=== PATIENT | female | born 1935 | race Caucasian/White ===

== ENCOUNTER 2024-10-02 14:51 | Inpatient (IN) ==
--- OUTSIDE RECORDS SUMMARY | 2024-10-02 14:55 | External Medical Summary | Summary of Care ---
Author Name Unknown Organization [facility] Address [address] [place] [address] Phone [phone] Care Team Providers Care Vp Packaging Name Role Phone Damian Shay MD Primary Care Provide r Reason for Visit * Reason Comments eRx-Medication Refill Encounter Details Date Type Department Care Team (Late st Contact Info) Description 07/18/2024 Refill Family Medicine [address] [phone] Damian Shay MD [address] [place] [address] [place] [address] COPD, group C, by GOLD 2017 classification ([facility])*; COPD, group B, by GOLD 2017 classification ([facility]) Allergies Active Allergy Reactions Criticality Noted Date Comments Fentanyl Itching 01/22/2015 Itching all over w/patch Hydrocodone 01/19/2015 Throat tightening Ibuprofen 11/17/2017 Advised to avoid due to kidney function Latex 10/03/2009 Rash Lisinopril 12/12/2009 Cough Oxycodone 01/19/2015 Throat tightening Tramadol 01/19/2015 Itchy documented as of this encounter (statuses as of 07/20/2024) Medications Aspirin 81 MG Tablet Take 1 Tablet by mouth in the morning. Active Loratadine 10 MG Oral Tablet (Claritin)Indicati ons:Rhinorrhea Take 1 Tablet by mouth every night at bedtime. 30 Tablet 11 05/01/20 23 Active amLODIPine Besylate 5 MG Oral Tablet (Norvasc)Indicatio ns:Benign hypertension with chronic kidney disease, stage III (HCC) TAKE 1 TABLET BY MOUTH EVERY DAY IN THE MORNING 90 Tablet 3 07/07/19 24 Active Sertraline HCl 50 MG Oral Tablet (Zoloft)Indication s:Depression with anxiety TAKE 1 TABLET BY MOUTH EVERY DAY 90 Tablet 3 07/07/19 24 Active Fluticasone-Salmet danielle 500-50 MCG/ACT Inhalation Aerosol Powder Breath Activated (Advair Diskus)Indications :COPD, group C, by GOLD 2017 classification ([facility]) INHALE 1 PUFF BY MOUTH IN THE MORNING AND BEFORE BEDTIME 60 Each 5 05/06/20 24 Active Rosuvastatin Calcium 10 MG Oral Tablet (Crestor)Indicatio ns:Hyperlipidemia with target LDL less than 130 TAKE 1 TABLET BY MOUTH EVERY DAY IN THE MORNING 90 Tablet 2 07/10/19 25 Active Losartan Potassium 25 MG Oral Tablet (Cozaar) TAKE BY MOUTH 2 TABLETS (50 MG) DAILY IN THE MORNING 180 Tablet 2 07/10/19 25 Active Ventolin HFA 108 (90 Base) MCG/ACT Inhalation Aerosol SolutionIndication s:COPD, group C, by GOLD 2017 classification ([facility]) INHALE 2 PUFFS BY MOUTH EVERY 4 HOURS NEEDED FOR COUGH OR WHEEZING 54 g 1 07/20/19 25 Active Ventolin HFA 108 (90 Base) MCG/ACT Inhalation Aerosol SolutionIndication s:COPD, group B, by GOLD 2017 classification ([facility]) INHALE 2 PUFFS BY MOUTH EVERY 4 HOURS NEEDED FOR COUGH OR WHEEZING 54 g 1 07/07/19 24 025 Discontinued documented as of this encounter (statuses as of 07/20/2024) Active Problems Problem Noted Date Diagnosed Date COPD, group C, by GOLD 2017 classification 06/02 Overview: Per COPD GOLD Classification Benign hypertension with stage 3b chronic kidney disease 07/08/2021 Overview: Per CKD protocol Prediabetes 02/04/2021 Overview: Per Prediabetes protocol Mild mitral regurgitation 01/31/2021 H/O cervical spine surgery 01/31/2021 Depression with anxiety 07/23/2019 [place]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 10/13/2018 HTN, goal below 150/90 11/05/2017 Dyshidrotic eczema 10/02/2016 Mixed hyperlipidemia 04/05/2014 Vitamin D deficiency 10/03/2009 Overview (10/16/2009): Vitamin D 23.2 Female stress incontinence 04/03/2009 Generalized osteoarthritis of multiple sites 09/2008 Gastroesophageal reflux disease with esophagitis 09/26/2008 Tobacco use disorder Disc disorder of lumbar region documented as of this encounter (statuses as of 07/20/2024) Resolved Problems Problem Noted Date Diagnosed Date Resolved Date Chronic kidney disease, stage 3b 07/08/2021 03/18/2024 Overview: Per CKD protocol Stage 3a chronic kidney disease 11/06/2020 07/10/2021 Overview: Per CKD protocol Benign hypertension with sta ge 3a chronic kidney disease 10/02/2020 07/10/2021 Overview: Per CKD protocol Benign hypertension with chr onic kidney disease, stage III 01/03/2019 07/23/2019 Benign hypertension with chr onic kidney disease, stage III 09/29/2018 10/04/2020 Overview (09/29/2018): COMBO CODE Kidney disease, chronic, sta ge III (GFR 30-59 ml/min) 09/29/2016 10/06/2018 Overview: Per CKD protocol #1 Hip pain 01/10/2015 08/21/2016 Routine general medical exam ination at a health care facility 04/05/2014 08/21/2016 Overview (05/19/2015): Plan left hip total replacement NEEDS Shingles. 09/06/13 Colonoscopy-Sessile Serrated Adenoma. consider CT screening lungs Daughter in law my patient 09/05 Stress test. overall WNL. Small defect likely due to breast Or apical thickening. [facility]. 06/07 LDL 70. Gluc 109. TSH WNL 01/04 mammo WNL, Vit D 59 MRI shoulder left-mild OA. 08/03 Lumbar xray DDD L4-5, L5S1 Kidney disease, chronic, sta ge II (GFR 60-89 ml/min) 10/16/2009 07/10/2016 HTN, goal below 140/90 10/03/200911/05 Dyslipidemia, goal LDL below 100 05/08/2009 04/05/2014 Overview (05/08/2009): Per Lipid Taxonomy. Other atopic dermatitis 04/03/200907/25 Overview (03/17/2017): ICD-10 update of inactive term Major depressive disorder 09/26/2008 Overview (03/17/2017): ICD-10 update of inactive term Cataract 09/26/2008 04/05/2014 Kidney disease, chronic, sta ge III (GFR 30-59 ml/min) 09/26/2008 10/16/2009 Overview (09/27/2008): 23/1.0 GFR 58.1 Perichondritis of pinna 11/11/200403/25 Overview (10/03/2008): left ear Benign neoplasm of colon 01/28/200004/2014 Overview (10/03/2008): tubular adenoma descending colon Cataract extraction status 0 09/29/2018 Mixed dyslipidemia 9 Overview (05/08/2009): Per Lipid Taxonomy. COPD, group B, by GOLD 2017 classification 06/05/2022 Overview (11/18/2017): 10/09 & 10/06 PFTs-mod obstruction Chronic rhinitis 03/05/2017 documented as of this encounter (statuses as of 07/20/2024) Immunizations Name Administration Dates Next Due COVID-19 mRNA, LNP-s, No Pre serve, 2-Dose Series (Moderna) 02/15/2021,09/20/2020 COVID-19, MRNA-LNP, PF, 30 M CG/0.3 mL, 12 YRS AND ABOVE, IM (PFIZER-Comirnaty) 03/18/2024,05/01/2023 Pneumococcal Conjugate Vacc, 13 Valent (Prevnar) 11/10/2014 Pneumococcal Polysaccharide PPV23 (Pneumovax) 09/26/2008 Season Influenza, Quad, PF, Adjuvanted, 65+ Yrs, IM (FLUAD) 02/01/2020 Seasonal Influenza Vac., MDV , IM, 0.5 mL (Fluzone) 02/15/2014,02/20/2010,03/10/2009 Seasonal Influenza, High Dos e, Trivalent, PF, IM (Fluzone HD) 03/18/2024 Seasonal Influenza, PF, 6 M & above, IM , (FluLaval or Fluzone) 03/05/2017 Seasonal Influenza, Quadriva lent Hd (Fluzone Hd) 05/01/2023,02/05/2022 Seasonal Influenza, Quadriva lent, No Preserve, IM 02/22/2018,01/29/2016,03/14/2015 Seasonal Influenza, Trivalen t, Adjuvanted, 65+ YRS, PF, (Fluad) 02/16/2019 TD, Preservative Free 09/26/2008 TDAP (age 10 and older)(Boostrix) 03/14/2015 Varicella Zoster Vaccine (Adult) 01/10/2015 documented as of this encounter Social History Tobacco Use Types Packs/Day Years Used Date Smoking Tobacco: Former Cigarettes 0.8 64 0 02/21/1957 - 02/21/2021 Smokeless Tobacco: Never Alcohol Use Standard Drinks/Week Comments No 0 (1 standard drink = 0.6 oz pur e alcohol) PHQ-2 Answer Date Recorded PHQ Adult Total Score 0 03/18/2024 Hunger Vital Sign Answer Date Recorded Within the past 12 months, y ou worried that your food would run out before you got the money to buy more. Never true 10/05/19 21 Within the past 12 months, t he food you bought just didn't last and you didn't have money to get more. Never true 10/04/2020 Utilities Answer Date Recorded Do you have trouble paying y our heating, water, or electric bill? (Adult - for ages 18 years and over) Not on file 11/10/2023 Is your family able to pay t he heat, water, or electric bill? (Household - for ages 0-17 years) Not on file 11/10/2023 Does your family have access to good internet? (Household - for ages 0-17 years) Not on file 11/10/2023 Social Connections Answer Date Recorded How often do you feel lonely or isolated from those around you? (Adult - for ages 18 years and over) Not on file 11/10/2023 Comments No Sex and Gender Information Value Date Recorded Sex Assigned at Not on file Legal Sex Female 6:41 AM EST Gender Identity Not on file Sexual Orientation Not on file Occupation Industry Job Start Date Job End Date retired. Not on file Not on file Not on file documented as of this encounter Miscellaneous Notes * Telephone Encounter - Daron Miller [facility] - 07/20/2024 2:28 AM ESTSigned Prescriptions: Disp Refills Ventolin HFA 108 (90 Base) MCG/ACT Inhalat*54 g 1 Sig: INHALE 2 PUFFS BY MOUTH EVERY 4 HOURS NEEDED FOR COUGH OR WHEEZINGAuthorizing Provider: Gabriel SHAY User: DARON MILLER documented in this encounter Plan of Treatment Upcoming Encounters Date Type Department Care Team (Late st Contact Info) Description 09/16/2024 9:40 AM EDT [facility] [place] [address] Flaquita Lucas PA-C [address] [place] [address] [place] [phone] Health Maintenance Due Date Last Done Comments Alpha-1 Antitrypsin 1953 Zoster Vaccines (2 of 3) 03/07/2015 01/10/2015 Adult Wellness Visit 11/11/2015 11/10/2014 CKD PHOS USE SMARTSET 88762 03/31/2024 11/0 11/2022, 02/05/2022, 01/31/2021, Additional history exists COVID-19 Vaccine ( season) 2024 03/18/2024, 05/01/2023, 02/15/2021, Additional history exists DTap/Tdap Vaccines (2 - Td or Tdap) 03/14/2025 03/14/2015, 09/26/2008 Albumin/Creatinine Ratio 03/18/2025 024, 03/31/2023, 02/05/2022, Additional history exists CKD HGB USE SMARTSET 59064 03/18/202503/18, 03/31/2023, 10/15/2021, Additional history exists Depression Monitoring 03/18/2025 03/18/2024 HbA1c 03/18/2025 03/18/2024, 1111/2022, 02/05/2022, Additional history exists O2 ASSESSMENT COMPLETED IN PAST YEAR FOR COPD 03/18/2025 03/18/2024 Pneumococcal Vaccine: 50+ Years Completed 11/10/2014, 09/26/2008 Influenza Vaccine (FLU shot) Completed , 05/01/2023, 02/05/2022, Additional history exists HPV (Gardasil) Vaccine Aged Out No lo nger eligible based on patient's age to complete this topic Hepatitis B Vaccine Aged Out No longe r eligible based on patient's age to complete this topic MENINGOCOCCAL (MENACTRA/MENVEO) Aged Out No longer eligible based on patient's age to complete this topic Meningitis B Vaccine (Bexsero/Trumemba) Aged Out No longer eligible based on patient's age to complete this topic documented as of this encounter Medical Devices Not on filedocumented as of this encounter Visit Diagnoses Diagnosis COPD, group C, by GOLD 2017 classification (HCC)- Primary COPD, group B, by GOLD 2017 classification (HCC) documented in this encounter Care Teams Vp Packaging Relationship Specialty Start Date End Date Damian Shay MD NPI: [id number] [place] [address] [place] [id number] PCP - General Family Medicine 10/31/20 documented as of this encounter
--- OUTSIDE RECORDS SUMMARY | 2024-10-02 14:55 | External Medical Summary | Summary of Care ---
Author Name Unknown Organization [facility] Address [address] [place] [address] Phone [phone] Care Team Providers Care Media Supervisor Name Role Phone Damian Shay MD Primary Care Provide r Reason for Visit * Reason Comments eRx-Medication Refill Encounter Details Date Type Department Care Team (Late st Contact Info) Description 07/18/2024 Refill Family Medicine [address] [phone] Damian Shay MD [address] [place] [address] [place] [address] COPD, group C, by GOLD 2017 classification ([facility])*; COPD, group B, by GOLD 2017 classification ([facility]) Allergies Active Allergy Reactions Criticality Noted Date Comments Fentanyl Itching 01/22/2015 Itching all over w/patch Hydrocodone 01/19/2015 Throat tightening Ibuprofen 11/17/2017 Advised to avoid due to kidney function Latex 10/03/2009 Rash Lisinopril 12/12/2009 Cough Oxycodone 01/19/2015 Throat tightening Tramadol 01/19/2015 Itchy documented as of this encounter (statuses as of 07/22/2024) Medications Aspirin 81 MG Tablet Take 1 [...] :COPD, group C, by GOLD 2017 classification ([facility]) INHALE 1 PUFF BY MOUTH IN THE [...] s:COPD, group C, by GOLD 2017 classification ([facility]) INHALE 2 PUFFS BY MOUTH EVERY 4 HOURS NEEDED FOR COUGH OR WHEEZING 54 g 1 07/20/19 25 Active Ventolin HFA 108 (90 Base) MCG/ACT Inhalation Aerosol SolutionIndication s:COPD, group B, by GOLD 2017 classification ([facility]) INHALE 2 PUFFS BY MOUTH EVERY 4 HOURS NEEDED FOR COUGH OR WHEEZING 54 g 1 07/07/19 24 025 Discontinued documented as of this encounter (statuses as of 07/22/2024) Active Problems Problem Noted Date Diagnosed Date [...] as of this encounter (statuses as of 07/22/2024) Resolved Problems Problem Noted Date Diagnosed Date [...] to breast Or apical thickening. [facility]. 06/07 LDL 70. Gluc 109. TSH WNL [...] as of this encounter (statuses as of 07/22/2024) Immunizations Name Administration Dates Next Due COVID-19 [...] encounter Miscellaneous Notes * Telephone Encounter - Lesli Rowell CPhT - 07/22/2024 2:44 PM EST Pt calling to request Ventolin HFA 108 (90 Base) MCG/ACT Inhalation Aerosol Solution . Informed pt that RX is available at their pharmacy. Pt verbalized understanding and stated they will check with their pharmacy regarding this medication. Thank you, Lesli Rowell Code Number [facility] ([facility] (formerly Telepharmacy) 07/22/2024 2:44 PM * Telephone Encounter - Daron Miller [facility] - 07/20/2024 2:28 AM ESTSigned Prescriptions: Disp [...] 9:40 AM EDT Office Visit Family Medicine [address] [place] [address] Flaquita Lucas PA-C [address] [place] [address] [place] Sterling [phone] Health Maintenance Due Date Last Done Comments Alpha-1 Antitrypsin 1953 Zoster Vaccines (2 of 3) 03/07/2015 01/10/2015 Adult Wellness Visit 11/11/2015 11/10/2014 CKD PHOS USE SMARTSET 52126 03/31/202411/2022, 02/05/2022, 01/31/2021, Additional history exists COVID-19 Vaccine ( season) 2024 03/18/2024, 05/01/2023, 02/15/2021, Additional history exists DTap/Tdap Vaccines (2 - Td or Tdap) 03/14/2025 03/14/2015, 09/26/2008 Albumin/Creatinine Ratio 03/18/20252 024, 03/31/2023, 02/05/2022, Additional history exists CKD HGB USE SMARTSET 50748 03/18/202503/18, 03/31/2023, 10/15/2021, Additional history exists Depression [...] (HCC) documented in this encounter Care Teams Media Supervisor Relationship Specialty Start Date End Date Damian Shay MD [address] [place] [address] [place] [address] PCP - General Family Medicine 10/31/20 documented as of this encounter
--- OUTSIDE RECORDS SUMMARY | 2024-10-02 14:55 | External Medical Summary ---
Author Name Unknown Address Unknown Organization K01:[facility] [place] [address] [place] [address] Laboratory Report Ordering Provider Test Date Status MALLORY HANNA 09/21/2024 08:45:44 Final Observation Date Value Abnormality Reference (Units ) Status BUN 09/21/2024 08:45:44 22 Above high normal 6-20 (mg/dL) Final Creatinine 09/21/2024 08:45:44 1.3 Above high normal 0.5-1.0 (mg/dL) Final Glomerular filtration rate/1.73 sq M.predicted [Volume Rate/Area] in Serum, Plasma or Blood by Creatinine-based formula (CKD-EPI) 09/21/2024 08:45:44 41 Below low normal >=60 (mL/min) Final eGFR is calculated based on the CKD-EPI 2020 equation. Sodium 09/21/2024 08:45:44 144 135-146 (m mol/L) Final Potassium 09/21/2024 08:45:44 4.7 3.5-5.1 (m mol/L) Final Cl 09/21/2024 08:45:44 105 98-107 (mm ol/L) Final CO2 09/21/2024 08:45:44 26 22-32 (mmo l/L) Final Anion gap 09/21/2024 08:45:44 13 7-15 (mmol /L) Final Glucose 09/21/2024 08:45:44 119 70-120 (mg /dL) Final Calcium 09/21/2024 08:45:44 9.7 8.4-10.2 ( mg/dL) Final Performing Location [facility] [place] [address] [place] [address]
--- OUTSIDE RECORDS SUMMARY | 2024-10-02 14:55 | External Medical Summary | Summary of Care ---
Author Name Unknown Organization [facility] Address [address] [place] [address] Phone [phone] Care Team Providers Care Woven Label Designer Name Role Phone Damian Shay MD Primary Care Provide r Reason for Visit * Reason Comments Re-Check Encounter Details Date Type Department Care Team (Latest Contact Info) Description 09/21/2024 8:40 AM EDT Office Visit Family Medicine [address] [phone] Flaquita Lucas PA-C [address] [place] [address] [place] [phone] HTN, goal below 150/90*; COPD, group C, by GOLD 2017 classification ([facility]); Benign hypertension with stage 3b chronic kidney disease ([facility]); Depression with anxiety; Gastroesophageal reflux disease with esophagitis without hemorrhage; Generalized osteoarthritis of multiple sites; Mixed hyperlipidemia; Prediabetes; Benign hypertension with chronic kidney disease, stage III ([facility]) Allergies Active Allergy Reactions Criticality Noted Date Comments Fentanyl Itching 01/22/2015 Itching all over w/patch Hydrocodone 01/19/2015 Throat tightening Ibuprofen 11/17/2017 Advised to avoid due to kidney function Latex 10/03/2009 Rash Lisinopril 12/12/2009 Cough Oxycodone 01/19/2015 Throat tightening Tramadol 01/19/2015 Itchy documented as of this encounter (statuses as of 09/21/2024) Medications Aspirin 81 MG Tablet Take 1 Tablet by mouth in the morning. Active Loratadine 10 MG Oral Tablet (Claritin)Indicatio ns:Rhinorrhea Take 1 Tablet by mouth every night at bedtime. 30 Tablet 11 3 Active Fluticasone-Salmete rol 500-50 MCG/ACT Inhalation Aerosol Powder Breath Activated (Advair Diskus)Indications: COPD, group C, by GOLD 2017 classification ([facility]) INHALE 1 PUFF BY MOUTH IN THE MORNING AND BEFORE BEDTIME 60 Each 5 4 Active Rosuvastatin Calcium 10 MG Oral Tablet (Crestor)Indication s:Hyperlipidemia with target LDL less than 130 TAKE 1 TABLET BY MOUTH EVERY DAY IN THE MORNING 90 Tablet 2 5 Active Losartan Potassium 25 MG Oral Tablet (Cozaar) TAKE BY MOUTH 2 TABLETS (50 MG) DAILY IN THE MORNING 180 Tablet 2 5 Active Ventolin HFA 108 (90 Base) MCG/ACT Inhalation Aerosol SolutionIndications :COPD, group C, by GOLD 2017 classification ([facility]) INHALE 2 PUFFS BY MOUTH EVERY 4 HOURS NEEDED FOR COUGH OR WHEEZING 54 g 1 5 Active amLODIPine Besylate 5 MG Oral Tablet (Norvasc)Indication s:Benign hypertension with chronic kidney disease, stage III ([facility]) TAKE 1 TABLET BY MOUTH EVERY DAY IN THE MORNING 90 Tablet 2 5 Active Sertraline HCl 50 MG Oral Tablet (Zoloft)Indications :Depression with anxiety Take 1 Tablet by mouth in the morning. 90 Tablet 1 5 Active documented as of this encounter (statuses as of 09/21/2024) Active Problems Problem Noted Date Diagnosed Date Benign hypertension with chronic kidney disease, stage III 09/21/2024 COPD, group C, by GOLD 2017 classification [...] as of this encounter (statuses as of 09/21/2024) Resolved Problems Problem Noted Date Diagnosed Date [...] to breast Or apical thickening. [facility]. 06/07 LDL 70. Gluc 109. TSH WNL [...] as of this encounter (statuses as of 09/21/2024) Immunizations Name Administration Dates Next Due COVID-19 [...] 10 and older)(Boostrix) 03/14/2015 Varicella Zoster Vaccine Adult (Zostavax) 2014 documented as of this encounter Social History [...] money to get more. Never true 10/04/2020 Comments No Sex and Gender Information Value Date Recorded Sex Assigned at Not on file Legal Sex Female 6:41 AM EST Gender Identity Not on file Sexual Orientation Not on file Occupation Industry Job Start Date Job End Date retired. Not on file Not on file Not on file documented as of this encounter Last Filed Vital Signs Vital Sign Reading Time Taken Comments Blood Pressure 129/47 09/21/2024 8:32 AM EDT Pulse 61 09/21/2024 8:32 AM EDT Temperature 36.4 °C (97.5 °F) 09/21/2024 8:32 AM ED T Respiratory Rate - - Oxygen Saturation - - Inhaled Oxygen Concentration - - Weight 59 kg (130 lb) 09/21/2024 8:32 AM EDT Height 157.5 cm (5' 2") 09/21/2024 8:32 AM EDT Body Mass Index 23.78 09/21/2024 8:32 AM EDT documented in this encounter Progress Notes * Flaquita Lucas PA-C - 09/21/2024 8:37 AM EDT Nursing Notes: Nadege Brink, ANA PAULA 09/21/24 0834 Sign at exiting of workspace Return No concerns today Pt here today for recheck. Pt with PMH of HTN, CKD, GERD, allergies, severe COPD, depression/anxiety, lower back pain, OA, prediabetes. Pt has no issues at this time. She does need some labs. Review of patient's allergies indicates: Allergen Reactions Fentanyl Itching Itching all over w/patch Hydrocodone Throat tightening Ibuprofen Advised to avoid due to kidney function Latex Rash Lisinopril Cough Oxycodone Throat tightening Tramadol Itchy Current Outpatient Medications Medication Sig Dispense Refill Aspirin 81 MG Tablet Take 1 Tablet by mouth in the morning. Loratadine 10 MG Oral Tablet (Claritin) Take 1 Tablet by mouth every night at bedtime. 30 Tablet 11 Fluticasone-Salmeterol 500-50 MCG/ACT Inhalation Aerosol Powder Breath Activated (Advair Diskus) INHALE 1 PUFF BY MOUTH IN THE MORNING AND BEFORE BEDTIME 60 Each 5 Rosuvastatin Calcium 10 MG Oral Tablet (Crestor) TAKE 1 TABLET BY MOUTH EVERY DAY IN THE MORNING 90Tablet 2 Losartan Potassium 25 MG Oral Tablet (Cozaar) TAKE BY MOUTH 2 TABLETS (50 MG) DAILY IN THE MORNING 180 Tablet 2 Ventolin HFA 108 (90 Base) MCG/ACT Inhalation Aerosol Solution INHALE 2 PUFFS BY MOUTH EVERY 4 HOURS NEEDED FOR COUGH OR WHEEZING 54 g 1 amLODIPine Besylate 5 MG Oral Tablet (Norvasc) TAKE 1 TABLET BY MOUTH EVERY DAY IN THE MORNING 90 Tablet 2 Sertraline HCl 50 MG Oral Tablet (Zoloft) Take 1 Tablet by mouth in the morning. 90 Tablet 1 No current facility-administered medications for this visit. 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 10/02/2016 Dyslipidemia, goal LDL below 100 Esophageal reflux Female stress incontinence 04/03/09 Generalized osteoarthritis of multiple sites Hip pain 01/10/2015 HTN, goal below 130/80 Kidney disease, chronic, stage III (GFR 30-59 ml/min) ([facility]) 23/1.0 GFR 58.1 Mixed dyslipidemia 11/24/02 CHOL 311, HDL 60, LDL 195, TRIG 282 Other acne 11/11/04 open comedones and blackheads on face, tretinoin prescribed Other and unspecified hyperlipidemia 04/05/2014 Other seborrheic keratosis 11/11/04 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 Tobacco Use Smoking status: Former Current packs/day: 0.00 Average packs/day: 0.8 packs/day for 64.0 years (48.0 ttl pk-yrs) Types: Cigarettes Start date: 02/21/1957 Quit date: 02/21/2021 Years since quittin.5 Smokeless tobacco: Never Substance and Sexual Activity Alcohol use: No Drug use: No Sexual activity: Never Comment: was 39YO Other Topics Concern Not on file Social History Narrative Not on file Social Needs Financial Resource Strain: Not on file Food Insecurity: No Food Insecurity (10/04/2020) Hunger Vital Sign Worried About Running Out of Food in the Last Year: Never true Ran Out of Food in the Last Year: Never true Transportation Needs: Not on file Social Connections: Unknown (11/10/2023) Social Connections How often do you feel lonely or isolated from those around you? (Adult - for ages 18 years and over): Not on file Housing Stability: Not on file O:Blood pressure 129/47, pulse 61, temperature 97.5 °F (36.4 °C), temperature source Tympanic, height 5' 2" (1.575 m), weight 130 lb (59 kg), not currently . GENERAL: alert, healthy, and no distress NECK: supple, no adenopathy, no bruits, thyroid normal size, non-tender, without nodularity EYES: PERRLA, conjunctiva are pink and non-injected, sclera clear EARS: External ears normal, Canals clear, TM's Normal NOSE: no mucosal erythema, no mucosal edema, no purulent discharge OROPHARYNX: no exudate, no erythema, lips, buccal mucosa, and tongue normal, and mucous membranes are moist HEART: regular rate & rhythm, no murmur, and no gallops LUNGS: chest symmetric with normal AP diameter, no chest deformities noted, no chest wall tenderness, lungs clear to auscultation A:HTN, goal below 150/90 (Primary) - BASIC METABOLIC PANEL; Future; Expected date: 09/21/2024 COPD, group C, by GOLD 2017 classification (HCC) Benign hypertension with stage 3b chronic kidney disease (HCC) Depression with anxiety Gastroesophageal reflux disease with esophagitis without hemorrhage Generalized osteoarthritis of multiple sites Mixed hyperlipidemia Prediabetes - HEMOGLOBIN A1C; Future; Expected date: 09/21/2024 Continue current meds. Will check some labs. Any questions/problems, please call. If anything changes, worsens, develops new sx, please call [facility]. Follow Up: Return if symptoms worsen or fail to improve. Flaquita Lucas PA-C documented in this encounter Nursing Notes * Nadege Brink LPN - 09/21/2024 8:34 AM EDT Return No concerns today documented in this encounter Plan of Treatment Health Maintenance Due Date Last Done Comments Alpha-1 Antitrypsin 1953 Zoster Vaccines (2 of 3) 03/07/2015 01/10/2015 Adult Wellness Visit 11/11/2015 11/10/2014 CKD PHOS USE SMARTSET 92101 03/31/2024 11/0 11/2022, 02/05/2022, 01/31/2021, Additional history exists COVID-19 Vaccine ( season) 2024 03/18/2024, 05/01/2023, 02/15/2021, Additional history exists DTap/Tdap Vaccines (2 - Td or Tdap) 03/14/2025 03/14/2015, 09/26/2008 Albumin/Creatinine Ratio 03/18/2025 024, 03/31/2023, 02/05/2022, Additional history exists CKD HGB USE SMARTSET 93138 03/18/202503/18, 03/31/2023, 10/15/2021, Additional history exists Depression Monitoring 03/18/2025 03/18/2024 O2 ASSESSMENT COMPLETED IN PAST YEAR FOR COPD 03/18/2025 03/18/2024 HbA1c 09/21/2025 09/21/2024, 02/23, 03/31/2023, Additional history exists Pneumococcal Vaccine: 50+ Years Completed 11/10/2014, 09/26/2008 [...] Not on filedocumented as of this encounter Results * (ABNORMAL) HEMOGLOBIN A1C (09/21/2024 8:45 AM EDT) Hemoglobin A1C 6.1(H) 4.0 - 5.6 % 09/21/2024 5:13 PM EDT [facility] [place]:The use of HbA1c to monitor glycemic status is based on normal hemoglobin and HbA composition. This test should not be used in patients with abnormal hemoglobin that affects the half life of the red blood cell or the in vivo glycation rates. Estimated Average Glucose 128(H) <126 mg/dL 09/21/2024 5:13 PM EDT [facility] [place] Blood Venous blood specimen / Unknown Venipuncture / Unknown 09/21/2024 8:45 AM EDT 09/21/2024 8:45 AM EDT Flaquita Lucas PA-C LAB BLOOD ORDERABLES Final Result [facility] [place] [address] [place] [address] * (ABNORMAL) BASIC METABOLIC PANEL (09/21/2024 8:45 AM EDT) BUN 22(H) 6 - 20 mg/dL 09/21/2024 5:07 PM EDT [facility] [place] CREATININE 1.3(H) 0.5 - 1.0 mg/dL 09/21/2024 5:07 PM EDT [facility] [place] EGFR 41(L) >=60 mL/min 09/21/2024 5:07 PM EDT [facility] [place] Comment:eGFR is calculated b ased on the CKD-EPI 2020 equation. SODIUM 144 135 - 146 mmol/L 09/21/2024 5:07 PM EDT [facility] POTASSIUM 4.7 3.5 - 5.1 mmol/L 09/21/2024 5:07 PM EDT LABORATORY C CHLORIDE 105 98 - 107 mmol/L 09/21/2024 5:07 PM EDT LABORATORY C CO2 26 22 - 32 mmol/L 09/21/2024 5:07 PM EDT [facility] ANION GAP 13 7 - 15 mmol/L 09/21/2024 5:07 PM EDT [facility] GLUCOSE 119 70 - 120 mg/dL 09/21/2024 5:07 PM EDT [facility] CALCIUM 9.7 8.4 - 10.2 mg/dL 09/21/2024 5:07 PM EDT [facility] Blood Venous blood specimen / Unknown Venipuncture / Unknown 09/21/2024 8:45 AM EDT 09/21/2024 8:45 AM EDT us Flaquita Lucas PA-C LAB BLOOD ORDERABLES Final Result [facility] [address] [facility] [place] [id number] documented in this encounter Visit Diagnoses Diagnosis HTN, goal below 150/90- Primary COPD, group C, by GOLD 2017 classification (HCC) Benign hypertension with stage 3b chronic kidney disease (HCC) Depression with anxiety Dysthymic disorder Gastroesophageal reflux disease with esophagitis without hemorrhage Generalized osteoarthritis of multiple sites Generalized osteoarthrosis, involving multiple sites Mixed hyperlipidemia Prediabetes Other abnormal glucose Benign hypertension with chronic kidney disease, stage III (HCC) Benign hypertensive kidney disease with chronic kidney disease stage I through stage IV, or unspecified documented in this encounter Care Teams Woven Label Designer Relationship Specialty Start Date End Date Damian Shay MD [address] [place] [address] [place] [id number] PCP - General Family Medicine 10/31/20 documented as of this encounter
--- OUTSIDE RECORDS SUMMARY | 2024-10-02 14:55 | External Medical Summary | Summary of Care ---
Author Name Unknown Organization [facility] Address [address] [place] [address] Phone [phone] Care Team Providers Care Coin Machine Assembler Name Role Phone Damian Shay MD Primary Care Provide r Encounter Details Date Type Department Care Team (Late st Contact Info) Description 06/16/2024 Population Health External Data Unspecified Department Allergies Active Allergy Reactions Criticality Noted Date Comments Fentanyl Itching 01/22/2015 Itching all over w/patch Hydrocodone 01/19/2015 Throat tightening Ibuprofen 11/17/2017 Advised to avoid due to kidney function Latex 10/03/2009 Rash Lisinopril 12/12/2009 Cough Oxycodone 01/19/2015 Throat tightening Tramadol 01/19/2015 Itchy documented as of this encounter (statuses as of 06/16/2024) Medications Aspirin 81 MG Tablet Take 1 Tablet by mouth in the morning. Active Loratadine 10 MG Oral Tablet (Claritin)Indicatio ns:Rhinorrhea Take 1 Tablet by mouth every night at bedtime. 30 Tablet 11 3 Active amLODIPine Besylate 5 MG Oral Tablet (Norvasc)Indication s:Benign hypertension with chronic kidney disease, stage III (HCC) TAKE 1 TABLET BY MOUTH EVERY DAY IN THE MORNING 90 Tablet 3 4 Active Losartan Potassium 25 MG Oral Tablet (Cozaar) TAKE BY MOUTH 2 TABLETS (50 MG) DAILY IN THE MORNING 180 Tablet 3 4 Active Sertraline HCl 50 MG Oral Tablet (Zoloft)Indications :Depression with anxiety TAKE 1 TABLET BY MOUTH EVERY DAY 90 Tablet 3 4 Active Ventolin HFA 108 (90 Base) MCG/ACT Inhalation Aerosol SolutionIndications :COPD, group B, by GOLD 2017 classification ([facility]) INHALE 2 PUFFS BY MOUTH EVERY 4 HOURS NEEDED FOR COUGH OR WHEEZING 54 g 1 4 Active Rosuvastatin Calcium 10 MG Oral Tablet (Crestor)Indication s:Hyperlipidemia with target LDL less than 130 TAKE 1 TABLET BY MOUTH EVERY DAY IN THE MORNING 90 Tablet 3 4 Active Fluticasone-Salmete rol 500-50 MCG/ACT Inhalation Aerosol Powder Breath Activated (Advair Diskus)Indications: COPD, group C, by GOLD 2017 classification ([facility]) INHALE 1 PUFF BY MOUTH IN THE MORNING AND BEFORE BEDTIME 60 Each 5 4 Active documented as of this encounter (statuses as of 06/16/2024) Active Problems Problem Noted Date Diagnosed Date [...] as of this encounter (statuses as of 06/16/2024) Resolved Problems Problem Noted Date Diagnosed Date [...] likely due to breast Or apical thickening. [facility] [place]. 06/07 LDL 70. Gluc 109. TSH WNL [...] Cataract extraction status 0 09/29/2018 Mixed dyslipidemia Overview (05/08/2009): Per Lipid Taxonomy. COPD, group B, by GOLD 2017 classification 06/05/2022 Overview (11/18/2017): 10/09 & 10/06 PFTs-mod obstruction Chronic rhinitis 03/05/2017 documented as of this encounter (statuses as of 06/16/2024) Immunizations Name Administration Dates Next Due COVID-19 [...] on file documented as of this encounter Plan of Treatment Upcoming Encounters Date Type Department Care Team (Late st Contact Info) Description 09/16/2024 9:40 AM EDT Office Visit Family Medicine [address] [place] [phone] Flaquita Lucas PA-C [address] [place] [address] [place] [phone] Health Maintenance Due Date Last Done Comments Alpha-1 Antitrypsin 1953 Zoster Vaccines (2 of 3) 03/07/2015 01/10/2015 Adult Wellness Visit 11/11/2015 11/10/2014 CKD PHOS USE SMARTSET 42692 03/31/2024 11/0 11/2022, 02/05/2022, 01/31/2021, Additional history exists DTap/Tdap Vaccines (2 - Td or Tdap) 03/14/2025 03/14/2015, 09/26/2008 Albumin/Creatinine Ratio 03/18/202503/18/ 024, 03/31/2023, 02/05/2022, Additional history exists CKD HGB USE SMARTSET 16227 03/18/202503/18, 03/31/2023, 10/15/2021, Additional history exists Depression Monitoring 03/18/2025 03/18/2024 HbA1c 03/18/2025 03/18/2024, 110 11/2022, 02/05/2022, Additional history exists O2 ASSESSMENT COMPLETED IN PAST YEAR FOR COPD 03/18/2025 03/18/2024 Pneumococcal Vaccine: 50+ Years Completed 11/10/2014, 09/26/2008 COVID-19 Vaccine Completed 03/18/2024, 12/2022, 02/15/2021, Additional history exists Influenza Vaccine (FLU shot) Completed , 05/01/2023, [...] Not on filedocumented as of this encounter Care Teams Coin Machine Assembler Relationship Specialty Start Date End Date Damian Shay MD [address] [place] [address] [place] [address] PCP - General Family Medicine 10/31/20 documented as of this encounter
--- OUTSIDE RECORDS SUMMARY | 2024-10-02 14:55 | External Medical Summary | Summary of Care ---
Author Name Unknown Organization [facility] Address [address] [place] [address] Phone [phone] Care Team Providers Care Electric Motor Repairing Supervisor Name Role Phone Damian Shay MD Primary Care Provide r Reason for Visit * Reason Comments Re-Check Encounter Details Date Type Department Care Team (Latest Contact Info) Description 09/21/2024 8:40 AM EDT Office Visit Family Medicine [address] [phone] Flaquita Lucas PA-C [address] [place] [address] [place] [phone] HTN, goal below 150/90*; COPD, group C, by GOLD 2017 classification ([facility]); Benign hypertension with stage 3b chronic kidney disease (HCC); Depression with anxiety; Gastroesophageal reflux disease with esophagitis without hemorrhage; Generalized osteoarthritis of multiple sites; Mixed hyperlipidemia; Prediabetes Allergies Active Allergy Reactions Criticality Noted Date [...] C, by GOLD 2017 classification ([facility]) INHALE 1 PUFF BY MOUTH IN THE [...] C, by GOLD 2017 classification ([facility]) INHALE 2 PUFFS BY MOUTH EVERY 4 HOURS NEEDED FOR COUGH OR WHEEZING 54 g 1 5 Active amLODIPine Besylate 5 MG Oral Tablet (Norvasc)Indication s:Benign hypertension with chronic kidney disease, stage III ([facility]) TAKE 1 TABLET BY MOUTH EVERY DAY [...] to breast Or apical thickening. [facility]. 06/07 LDL 70. Gluc 109. TSH WNL [...] 09/21/2024 8:37 AM EDT Nursing Notes: Nadege Brink LPN 09/21/24 0834 Sign at exiting of workspace [...] Chronic rhinitis COPD, severity to be determined ([facility]) Depression with anxiety 07/23/2019 Depressive disorder, not elsewhere classified Disc disorder of lumbar region Dyshidrotic eczema 10/02/2016 Dyslipidemia, goal LDL below 100 Esophageal reflux Female stress incontinence 04/03/09 Generalized osteoarthritis of multiple sites Hip pain 01/10/2015 HTN, goal below 130/80 Kidney disease, chronic, stage III (GFR 30-59 ml/min) ([facility]) 23/1.0 GFR 58.1 Mixed dyslipidemia 11/24/02 CHOL [...] on file Occupational History 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 Tobacco Use Smoking status: Former Current [...] documented in this encounter Plan of Treatment Pending Results Name Type Priority Associated Diagnoses Date /Time BASIC METABOLIC PANEL Lab Routine HTN, goal below 150/90 09/21/2024 8:45 AM EDT HEMOGLOBIN A1C Lab Routine Prediabetes 09/21/2024 8:45 AM EDT Scheduled Orders Name Type Priority Associated Diagnoses Orde r Schedule BASIC METABOLIC PANEL Lab Routine HTN, goal below 150/90 Expected: 09/21/2024 (Approximate), Expires: 09/21/2025 HEMOGLOBIN A1C Lab Routine Prediabetes Expected: 09/21/2024 (Approximate), Expires: 09/21/2025 Health Maintenance Due Date Last Done Comments Alpha-1 Antitrypsin 1955 Zoster Vaccines (2 of 3) 03/07/2015 01/10/2015 Adult Wellness Visit 11/11/2015 11/10/2014 CKD PHOS USE SMARTSET 98240 03/31/202411/2022, 02/05/2022, 01/31/2021, Additional history exists COVID-19 Vaccine ( season) 2024 03/18/2024, 05/01/2023, 02/15/2021, Additional history exists DTap/Tdap Vaccines (2 - Td or Tdap) 03/14/2025 03/14/2015, 09/26/2008 Albumin/Creatinine Ratio 03/18/202503/18/2 024, 03/31/2023, 02/05/2022, Additional history exists CKD HGB USE SMARTSET 87666 03/18/202503/18, 03/31/2023, 10/15/2021, Additional history exists Depression Monitoring 03/18/2025 03/18/2024 HbA1c 03/18/2025 03/18/2024, 11/2022, 02/05/2022, Additional history exists O2 ASSESSMENT [...] as of this encounter Visit Diagnoses Diagnosis HTN, goal below 150/90- Primary COPD, group C, by GOLD 2017 classification (HCC) Benign hypertension with stage 3b chronic kidney disease (HCC) Depression with anxiety Dysthymic disorder Gastroesophageal reflux disease with esophagitis without hemorrhage Generalized osteoarthritis of multiple sites Generalized osteoarthrosis, involving multiple sites Mixed hyperlipidemia Prediabetes Other abnormal glucose documented in this encounter Care Teams Electric Motor Repairing Supervisor Relationship Specialty Start Date End Date Damian Shay MD [address] [place] [address] [place] [address] PCP - General Family Medicine 10/31/20 documented as of this encounter
--- OUTSIDE RECORDS SUMMARY | 2024-10-02 14:55 | External Medical Summary | Summary of Care ---
Author Name Unknown Organization [facility] Address [address] [place] [address] Phone [phone] Care Team Providers Care Polysomnography Tech Name Role Phone Damian Shay MD Primary Care Provide r Reason for Visit * Reason Onset Date Comments Medication Problem 09/26/2024 Advair isn't covered Encounter Details Date Type Department Care Team (Late st Contact Info) Description 09/26/2024 Telephone Family [address] [phone] Flaquita Lucas PA-C [address] [place] [address] [place] [address] Medication Problem (Advair isn't covered) Allergies Active Allergy Reactions Criticality Noted Date Comments Fentanyl Itching 01/22/2015 Itching all over w/patch Hydrocodone 01/19/2015 Throat tightening Ibuprofen 11/17/2017 Advised to avoid due to kidney function Latex 10/03/2009 Rash Lisinopril 12/12/2009 Cough Oxycodone 01/19/2015 Throat tightening Tramadol 01/19/2015 Itchy documented as of this encounter (statuses as of 09/27/2024) Medications Aspirin 81 MG Tablet Take 1 Tablet by mouth in the morning. Active Loratadine 10 MG Oral Tablet (Claritin)Indicatio ns:Rhinorrhea Take 1 Tablet by mouth every night at bedtime. 30 Tablet 11 3 Active Fluticasone-Salmete rol 500-50 MCG/ACT Inhalation Aerosol Powder Breath Activated (Advair Diskus)Indications: COPD, group C, by GOLD 2017 classification ([facility]) INHALE 1 PUFF BY MOUTH IN THE [...] :COPD, group C, by GOLD 2017 classification ([facility]) INHALE 2 PUFFS BY MOUTH EVERY 4 HOURS NEEDED FOR COUGH OR WHEEZING 54 g 1 5 Active amLODIPine Besylate 5 MG Oral Tablet (Norvasc)Indication s:Benign hypertension with chronic kidney disease, stage III ([facility]) TAKE 1 TABLET BY MOUTH EVERY DAY IN THE MORNING 90 Tablet 2 5 Active Sertraline HCl 50 MG Oral Tablet (Zoloft)Indications :Depression with anxiety Take 1 Tablet by mouth in the morning. 90 Tablet 1 5 Active Fluticasone Furoate-Vilanterol 100-25 MCG/ACT Inhalation Aerosol Powder Breath Activated (BREO ellipta)Indications :COPD, group C, by GOLD 2017 classification ([facility]) Inhale 1 Puff by mouth in the morning. 28 Each 5 5 Active documented as of this encounter (statuses as of 09/27/2024) Active Problems Problem Noted Date Diagnosed Date [...] as of this encounter (statuses as of 09/27/2024) Resolved Problems Problem Noted Date Diagnosed Date [...] due to breast Or apical thickening. [facility]. 06/07 LDL 70. Gluc 109. TSH WNL [...] as of this encounter (statuses as of 09/27/2024) Immunizations Name Administration Dates Next Due COVID-19 [...] encounter Miscellaneous Notes * Telephone Encounter - Flaquita Lucas PA-C - 09/26/2024 10:45 AM EDT New inhaler sent to pharm. * Telephone Encounter - Lizet Roberts CMA - 09/26/2024 7:27 AM EDT The Advair Diskus inhaler is no longer covered by her insurance. [facility] is recommending alternatives: Advair HFA 45-21mcg or Breo Ellipta 100-25 mcg inhaler documented in this encounter Plan of Treatment Health Maintenance Due Date Last Done Comments Alpha-1 Antitrypsin 1953 Zoster Vaccines (2 of 3) 03/07/2015 01/10/2015 Adult Wellness Visit 11/11/2015 11/10/2014 CKD PHOS USE SMARTSET 34905 03/31/2024 11/0 11/2022, 02/05/2022, 01/31/2021, Additional history exists COVID-19 Vaccine ( season) 2024 03/18/2024, 05/01/2023, 02/15/2021, Additional history exists DTap/Tdap Vaccines (2 - Td or Tdap) 03/14/2025 03/14/2015, 09/26/2008 Albumin/Creatinine Ratio 03/18/202503/18/ 024, 03/31/2023, 02/05/2022, Additional history exists CKD HGB USE SMARTSET 89164 03/18/202503/18, 03/31/2023, 10/15/2021, Additional history exists Depression [...] C, by GOLD 2017 classification (HCC)- Primary documented in this encounter Care Teams Polysomnography Tech Relationship Specialty Start Date End Date Damian Shay MD [address] [place] [address] [place] [phone] PCP - General Family Medicine 10/31/20 documented as of this encounter
--- OUTSIDE RECORDS SUMMARY | 2024-10-02 14:55 | External Medical Summary | Summary of Care ---
Author Name Unknown Organization [facility] Address [address] [place] [address] Phone [phone] Care Team Providers Care Machine Icer Name Role Phone Damian Shay MD Primary Care Provide r Reason for Visit * Reason Comments Re-Check Encounter Details Date Type Department Care Team (Latest Contact Info) Description 09/21/2024 8:40 AM EDT Office Visit Family Medicine [address] [phone] Flaquita Lucas PA-C [address] [place] [address] [place] [phone] HTN, goal below 150/90*; COPD, group C, by GOLD 2017 classification ([facility]); Benign hypertension with stage 3b chronic kidney disease ([facility]); Depression with anxiety; Gastroesophageal reflux disease with esophagitis without hemorrhage; Generalized osteoarthritis of multiple sites; Mixed hyperlipidemia; Prediabetes; Benign hypertension with chronic kidney disease, stage III ([facility]) Allergies Active Allergy Reactions Criticality Noted Date [...] COPD, group C, by GOLD 2017 classification ([facility]) INHALE 1 PUFF BY MOUTH IN THE [...] :COPD, group C, by GOLD 2017 classification ([facility]) INHALE 2 PUFFS BY MOUTH EVERY 4 HOURS NEEDED FOR COUGH OR WHEEZING 54 g 1 5 Active amLODIPine Besylate 5 MG Oral Tablet (Norvasc)Indication s:Benign hypertension with chronic kidney disease, stage III ([facility]) TAKE 1 TABLET BY MOUTH EVERY DAY [...] to breast Or apical thickening. [facility]. 06/07 LDL 70. Gluc 109. 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 Tobacco Use Smoking status: Former Current [...] Visit 11/11/2015 11/10/2014 CKD PHOS USE SMARTSET [id number] 03/31/2024 11/0 11/2022, 02/05/2022, 01/31/2021, Additional history exists COVID-19 Vaccine ( season) 2024 03/18/2024, 05/01/2023, 02/15/2021, Additional history exists DTap/Tdap Vaccines (2 - Td or Tdap) 03/14/2025 03/14/2015, 09/26/2008 Albumin/Creatinine Ratio 03/18/2025 024, 03/31/2023, 02/05/2022, Additional history exists CKD HGB USE SMARTSET 04966 03/18/202503/18, 03/31/2023, 10/15/2021, Additional history exists Depression [...] 5.6 % 09/21/2024 5:13 PM EDT [facility] Comment:The use of HbA1c to monitor glycemic status is based on normal hemoglobin and HbA composition. This test should not be used in patients with abnormal hemoglobin that affects the half life of the red blood cell or the in vivo glycation rates. Estimated Average Glucose 128(H) <126 mg/dL 09/21/2024 5:13 PM EDT [facility] Blood Venous blood specimen / Unknown Venipuncture / Unknown 09/21/2024 8:45 AM EDT 09/21/2024 8:45 AM EDT Flaquita Lucas PA-C LAB BLOOD ORDERABLES Final Result [facility] [address] [place] [address] * (ABNORMAL) BASIC METABOLIC PANEL (09/21/2024 8:45 AM EDT) BUN 22(H) 6 - 20 mg/dL 09/21/2024 5:07 PM EDT [facility] CREATININE 1.3(H) 0.5 - 1.0 mg/dL 09/21/2024 5:07 PM EDT [facility] EGFR 41(L) >=60 mL/min 09/21/2024 5:07 PM EDT [facility] Comment:eGFR is calculated b ased on the [...] ORDERABLES Final Result [facility] [address] [facility] [place] [address] documented in this encounter Visit Diagnoses Diagnosis [...] unspecified documented in this encounter Care Teams Machine Icer Relationship Specialty Start Date End Date Damian Shay MD [address] [place] [address] [place] [phone] PCP - General Family Medicine 10/31/20 documented as of this encounter
--- OUTSIDE RECORDS SUMMARY | 2024-10-02 14:55 | External Medical Summary | Summary of Care ---
Author Name Unknown Organization [facility] Address [address] [place] [address] Phone [phone] Care Team Providers Care Roughener Name Role Phone Damian Shay MD Primary Care Provide r Reason for Visit * Reason Comments eRx-Medication Refill Encounter Details Date Type Department Care Team (Late st Contact Info) Description 07/09/2024 Refill Family Medicine [address] [phone] Damian Shay MD [address] [place] [address] [place] [address] Hyperlipidemia with target LDL less than 130 Allergies Active Allergy Reactions Criticality Noted Date Comments Fentanyl Itching 01/22/2015 Itching all over w/patch Hydrocodone 01/19/2015 Throat tightening Ibuprofen 11/17/2017 Advised to avoid due to kidney function Latex 10/03/2009 Rash Lisinopril 12/12/2009 Cough Oxycodone 01/19/2015 Throat tightening Tramadol 01/19/2015 Itchy documented as of this encounter (statuses as of 07/10/2024) Medications Aspirin 81 MG Tablet Take 1 Tablet by mouth in the morning. Active Loratadine 10 MG Oral Tablet (Claritin)Indicati ons:Rhinorrhea Take 1 Tablet by mouth every night at bedtime. 30 Tablet 11 05/01/20 23 Active amLODIPine Besylate 5 MG Oral Tablet (Norvasc)Indicatio ns:Benign hypertension with chronic kidney disease, stage III ([facility]) TAKE 1 TABLET BY MOUTH EVERY DAY IN THE MORNING 90 Tablet 3 07/07/19 24 Active Sertraline HCl 50 MG Oral Tablet (Zoloft)Indication s:Depression with anxiety TAKE 1 TABLET BY MOUTH EVERY DAY 90 Tablet 3 07/07/19 24 Active Ventolin HFA 108 (90 Base) MCG/ACT Inhalation Aerosol SolutionIndication s:COPD, group B, by GOLD 2017 classification ([facility]) INHALE 2 PUFFS BY MOUTH EVERY 4 HOURS NEEDED FOR COUGH OR WHEEZING 54 g 1 07/07/19 24 Active Fluticasone-Salmet danielle 500-50 MCG/ACT Inhalation Aerosol Powder Breath Activated (Advair Diskus)Indications :COPD, group C, by GOLD 2017 classification ([facility]) INHALE 1 PUFF BY MOUTH [...] MORNING 180 Tablet 2 07/10/19 25 Active Losartan Potassium 25 MG Oral Tablet (Cozaar) TAKE BY MOUTH 2 TABLETS (50 MG) DAILY IN THE MORNING 180 Tablet 3 07/07/19 24 025 Discontinued Rosuvastatin Calcium 10 MG Oral Tablet (Crestor)Indicatio ns:Hyperlipidemia with target LDL less than 130 TAKE 1 TABLET BY MOUTH EVERY DAY IN THE MORNING 90 Tablet 3 07/07/19 24 025 Discontinued documented as of this encounter (statuses as of 07/10/2024) Active Problems Problem Noted Date Diagnosed Date [...] as of this encounter (statuses as of 07/10/2024) Resolved Problems Problem Noted Date Diagnosed Date [...] to breast Or apical thickening. [facility]. 06/07 LDL 70. Gluc 109. TSH WNL [...] as of this encounter (statuses as of 07/10/2024) Immunizations Name Administration Dates Next Due COVID-19 [...] encounter Miscellaneous Notes * Telephone Encounter - Paulino Cisneros RPh - 07/10/2024 2:44 PM ESTSigned Prescriptions: Disp Refills Rosuvastatin Calcium 10 MG Oral Tablet (Cr*90 Tab*2 Sig: TAKE 1 TABLET BY MOUTH EVERY DAY IN THE MORNINGAuthorizing Provider: Gabriel SHAY User:PAULINO CISNEROS Losartan Potassium 25 MG Oral Tablet (Coza*180 Ta*2 Sig: TAKE BY MOUTH 2 TABLETS (50 MG) DAILY IN THE MORNINGAuthorizing Provider: Gabriel SHAY User: PAULINO CISNEROS documented in this encounter Plan of Treatment Upcoming Encounters Date Type Department Care Team (Late st Contact Info) Description 09/16/2024 9:40 AM EDT Office Visit Family Medicine [address] [phone] Flaquita Martinez PA-C [address] [place] [address] [place] [address] Health Maintenance Due Date Last Done Comments Alpha-1 Antitrypsin 1953 Zoster Vaccines (2 of 3) 03/07/2015 01/10/2015 Adult Wellness Visit 11/11/2015 11/10/2014 CKD PHOS USE SMARTSET [id number] 03/31/2024 11/0 11/2022, 02/05/2022, 01/31/2021, Additional history exists DTap/Tdap Vaccines (2 - Td or Tdap) 03/14/2025 03/14/2015, 09/26/2008 Albumin/Creatinine Ratio 03/18/2025 024, 03/31/2023, 02/05/2022, Additional history exists CKD HGB USE SMARTSET 52284 03/18/202503/18, 03/31/2023, 10/15/2021, Additional history exists Depression [...] as of this encounter Visit Diagnoses Diagnosis Hyperlipidemia with target LDL less than 130 Other and unspecified hyperlipidemia documented in this encounter Care Teams Roughener Relationship Specialty Start Date End Date Damian Shay MD [address] [place] [address] [place] [address] PCP - General Family Medicine 10/31/20 documented as of this encounter
--- OUTSIDE RECORDS SUMMARY | 2024-10-02 14:55 | External Medical Summary ---
Author Name Unknown Address Unknown Organization K01:[facility] [place] [address] [facility] [address] Laboratory Report Ordering Provider Test Date Status MALLORY HANNA 09/21/2024 08:45:44 Final Observation Date Value Abnormality Reference (Units ) Status HbA1C 09/21/2024 08:45:44 6.1 Above high normal 4. 0-5.6 (%) Final The use of HbA1c to monitor glycemic status is based on normal hemoglobin and HbA composition. This test should not be used in patients with abnormal hemoglobin that affects the half life of the red blood cell or the in vivo glycation rates. Glucose, estimated average 09/21/2024 08:45:44 128 Above high normal <126 (mg/dL) Obdulio arevalo Performing Location [facility] [place] [address] [facility] [address]
--- OUTSIDE RECORDS SUMMARY | 2024-10-02 14:55 | External Medical Summary | Summary of Care ---
Author Name Unknown Organization [facility] Address [address] [place] [address] Phone [phone] Care Team Providers Care Child & Adolescent Psychiatrist Name Role Phone Damian Shay MD Primary Care Provide r Reason for Visit * Reason Comments Outpatient Testing Encounter Details Date Type Department Care Team (Late st Contact Info) Description 09/21/2024 8:40 AM EDT Laboratory Laboratory [address] [place] [phone] [place] [address] HTN, goal below 150/90; Prediabetes Allergies Active Allergy Reactions Criticality Noted [...] to breast Or apical thickening. [facility]. 06/07 LDL 70. Gluc 109. TSH WNL [...] as of this encounter Plan of Treatment Pending Results Name Type Priority Associated Diagnoses Date /Time BASIC METABOLIC PANEL Lab Routine HTN, goal below 150/90 09/21/2024 8:45 AM EDT HEMOGLOBIN A1C Lab Routine Prediabetes 09/21/2024 8:45 AM EDT Health Maintenance Due Date Last Done Comments Alpha-1 Antitrypsin 1953 Zoster Vaccines (2 of 3) 03/07/2015 01/10/2015 Adult Wellness Visit 11/11/2015 11/10/2014 CKD PHOS USE SMARTSET 13128 03/31/20240 11/2022, 02/05/2022, 01/31/2021, Additional history exists COVID-19 Vaccine ( season) 2024 03/18/2024, 05/01/2023, 02/15/2021, Additional history exists DTap/Tdap Vaccines (2 - Td or Tdap) 03/14/2025 03/14/2015, 09/26/2008 Albumin/Creatinine Ratio 03/18/2025 024, 03/31/2023, 02/05/2022, Additional history exists CKD HGB USE SMARTSET 87691 03/18/202503/18, 03/31/2023, 10/15/2021, Additional history exists Depression [...] encounter Visit Diagnoses Diagnosis HTN, goal below 150/90 Prediabetes Other abnormal glucose documented in this encounter Care Teams Child & Adolescent Psychiatrist Relationship Specialty Start Date End Date Damian Shay MD [address] [place] [address] [place] [phone] PCP - General Family Medicine 10/31/20 documented as of this encounter
--- OUTSIDE RECORDS SUMMARY | 2024-10-02 14:55 | External Medical Summary | Summary of Care ---
Author Name Unknown Organization [facility] Address [address] [place] [address] Phone [phone] Care Team Providers Care Rubber Compounder Supervisor Name Role Phone Damian Shay MD Primary Care Provide r Reason for Visit * Reason Comments eRx-Medication Refill Encounter Details Date Type Department Care Team (Late st Contact Info) Description 07/24/2024 Refill Family Medicine [address] [phone] Damian Shay MD [address] [place] [address] [place] [address] Benign hypertension with chronic kidney disease, stage III ([facility]) Allergies Active Allergy Reactions Criticality Noted Date Comments Fentanyl Itching 01/22/2015 Itching all over w/patch Hydrocodone 01/19/2015 Throat tightening Ibuprofen 11/17/2017 Advised to avoid due to kidney function Latex 10/03/2009 Rash Lisinopril 12/12/2009 Cough Oxycodone 01/19/2015 Throat tightening Tramadol 01/19/2015 Itchy documented as of this encounter (statuses as of 07/24/2024) Medications Aspirin 81 MG Tablet Take 1 Tablet by mouth in the morning. Active Loratadine 10 MG Oral Tablet (Claritin)Indicati ons:Rhinorrhea Take 1 Tablet by mouth every night at bedtime. 30 Tablet 11 05/01/20 23 Active Sertraline HCl 50 MG Oral Tablet (Zoloft)Indication s:Depression with anxiety TAKE 1 TABLET BY MOUTH EVERY DAY 90 Tablet 3 07/07/19 24 Active Fluticasone-Salmet danielle 500-50 MCG/ACT Inhalation Aerosol Powder Breath Activated (Advair Diskus)Indications :COPD, group C, by GOLD 2017 classification ([facility]) INHALE 1 PUFF BY MOUTH IN THE [...] s:COPD, group C, by GOLD 2017 classification ([facility]) INHALE 2 PUFFS BY MOUTH EVERY 4 HOURS NEEDED FOR COUGH OR WHEEZING 54 g 1 07/20/19 25 Active amLODIPine Besylate 5 MG Oral Tablet (Norvasc)Indicatio ns:Benign hypertension with chronic kidney disease, stage III (HCC) TAKE 1 TABLET BY MOUTH EVERY DAY IN THE MORNING 90 Tablet 2 07/25/19 25 Active amLODIPine Besylate 5 MG Oral Tablet (Norvasc)Indicatio ns:Benign hypertension with chronic kidney disease, stage III (HCC) TAKE 1 TABLET BY MOUTH EVERY DAY IN THE MORNING 90 Tablet 3 07/07/19 24 025 Discontinued documented as of this encounter (statuses as of 07/24/2024) Active Problems Problem Noted Date Diagnosed Date [...] as of this encounter (statuses as of 07/24/2024) Resolved Problems Problem Noted Date Diagnosed Date [...] to breast Or apical thickening. [facility]. 06/07 LDL 70. Gluc 109. TSH WNL [...] as of this encounter (statuses as of 07/24/2024) Immunizations Name Administration Dates Next Due COVID-19 [...] encounter Miscellaneous Notes * Telephone Encounter - Jeny Hawthorne [facility] - 07/24/2024 2:37 PM ESTSigned Prescriptions: Disp Refills amLODIPine Besylate 5 MG Oral Tablet (Norv*90 Tab*2 Sig: TAKE 1TABLET BY MOUTH EVERY DAY IN THE MORNINGAuthorizing Provider: Gabriel SHAY User: JENY HAWTHORNE documented in this encounter Plan of Treatment Upcoming Encounters Date Type Department Care Team (Late st Contact Info) Description 09/16/2024 9:40 AM EDT Office Visit Family Medicine [address] [place] [phone] Flaquita Lucas PA-C [address] [place] [address] [place] [address] Health Maintenance Due Date Last Done Comments Alpha-1 Antitrypsin 1955 Zoster Vaccines (2 of 3) 03/07/2015 01/10/2015 Adult Wellness Visit 11/11/2015 11/10/2014 CKD PHOS USE SMARTSET 68755 03/31/2024 11/0 11/2022, 02/05/2022, 01/31/2021, Additional history exists COVID-19 Vaccine ( season) 2024 03/18/2024, 05/01/2023, 02/15/2021, Additional history exists DTap/Tdap Vaccines (2 - Td or Tdap) 03/14/2025 03/14/2015, 09/26/2008 Albumin/Creatinine Ratio 03/18/2025 024, 03/31/2023, 02/05/2022, Additional history exists CKD HGB USE SMARTSET 32678 03/18/202503/18, 03/31/2023, 10/15/2021, Additional history exists Depression [...] as of this encounter Visit Diagnoses Diagnosis Benign hypertension with chronic kidney disease, stage III (HCC) 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
--- OUTSIDE RECORDS SUMMARY | 2024-10-02 14:55 | External Medical Summary | Summary of Care ---
Author Name Unknown Organization [facility] Address [address] [place] [address] Phone [phone] Care Team Providers Care A Operator Name Role Phone Damian Shay MD Primary Care Provide r Reason for Visit * Reason Onset Date Comments Medication Refill 09/11/2024 Encounter Details Date Type Department Care Team (Late st Contact Info) Description 09/11/2024 Refill Family Medicine [address] [place] [address] Damian Shay MD [address] [place] [address] [place] [phone] Depression with anxiety Allergies Active Allergy Reactions Criticality Noted Date Comments Fentanyl Itching 01/22/2015 Itching all over w/patch Hydrocodone 01/19/2015 Throat tightening Ibuprofen 11/17/2017 Advised to avoid due to kidney function Latex 10/03/2009 Rash Lisinopril 12/12/2009 Cough Oxycodone 01/19/2015 Throat tightening Tramadol 01/19/2015 Itchy documented as of this encounter (statuses as of 09/13/2024) Medications Aspirin 81 MG Tablet Take 1 Tablet by mouth in the morning. Active Loratadine 10 MG Oral Tablet (Claritin)Indicati ons:Rhinorrhea Take 1 Tablet by mouth every night at bedtime. 30 Tablet 11 3 Active Fluticasone-Salmet danielle 500-50 MCG/ACT Inhalation Aerosol Powder Breath Activated (Advair Diskus)Indications :COPD, group C, by GOLD 2017 classification ([facility]) INHALE 1 PUFF BY MOUTH [...] s:COPD, group C, by GOLD 2017 classification ([facility]) INHALE 2 PUFFS BY MOUTH EVERY 4 HOURS NEEDED FOR COUGH OR WHEEZING 54 g 1 5 Active amLODIPine Besylate 5 MG Oral Tablet (Norvasc)Indicatio ns:Benign hypertension with chronic kidney disease, stage III ([facility]) TAKE 1 TABLET BY MOUTH EVERY DAY IN THE MORNING 90 Tablet 2 5 Active Sertraline HCl 50 MG Oral Tablet (Zoloft)Indication s:Depression with anxiety Take 1 Tablet by mouth in the morning. 90 Tablet 1 5 Active Sertraline HCl 50 MG Oral Tablet (Zoloft)Indication s:Depression with anxiety TAKE 1 TABLET BY MOUTH EVERY DAY 90 Tablet 3 4 025 Discontin ued(Refil l) documented as of this encounter (statuses as of 09/13/2024) Active Problems Problem Noted Date Diagnosed Date [...] as of this encounter (statuses as of 09/13/2024) Resolved Problems Problem Noted Date Diagnosed Date [...] to breast Or apical thickening. [facility]. 06/07 LDL 70. Gluc 109. TSH WNL [...] as of this encounter (statuses as of 09/13/2024) Immunizations Name Administration Dates Next Due COVID-19 [...] encounter Miscellaneous Notes * Telephone Encounter - Jo Wilcox RPh - 09/13/2024 10:33 AM EDTSigned Prescriptions: Disp Refills Sertraline HCl 50 MG Oral Tablet (Zoloft) 90 Tab*1 Sig: Take 1 Tablet by mouth in the morning.Authorizing Provider: Gabriel SHAY User: JO WILCOX documented in this encounter Plan of Treatment Upcoming Encounters Date Type Department Care Team (Late st Contact Info) Description 09/21/2024 8:40 AM EDT [facility] [place] [address] Flaquita Lucas PA-C [address] [place] [address] [place] [phone] Health Maintenance Due Date Last Done Comments Alpha-1 Antitrypsin 1953 Zoster Vaccines (2 of 3) 03/07/2015 01/10/2015 Adult Wellness Visit 11/11/2015 11/10/2014 CKD PHOS USE SMARTSET 68878 03/31/20240 11/2022, 02/05/2022, 01/31/2021, Additional history exists COVID-19 Vaccine ( season) 2024 03/18/2024, 05/01/2023, 02/15/2021, Additional history exists DTap/Tdap Vaccines (2 - Td or Tdap) 03/14/2025 03/14/2015, 09/26/2008 Albumin/Creatinine Ratio 03/18/2025 024, 03/31/2023, 02/05/2022, Additional history exists CKD HGB USE SMARTSET 93265 03/18/202503/18, 03/31/2023, 10/15/2021, Additional history exists Depression [...] as of this encounter Visit Diagnoses Diagnosis Depression with anxiety Dysthymic disorder documented in this encounter Care Teams A Operator Relationship Specialty Start Date End Date Damian Shay MD [address] [place] [address] [place] [address] PCP - General Family Medicine 10/31/20 documented as of this encounter
--- OUTSIDE RECORDS SUMMARY | 2024-10-02 14:56 | External Medical Summary | Summary of Care ---
Author Name Unknown Organization [facility] Address [address] [place] [address] Phone [phone] Care Team Providers Care Oxyhydrogen Welder Name Role Phone Damian Shay MD Primary Care Provide r Reason for Visit * Reason Comments eRx-Medication Refill Encounter Details Date Type Department Care Team (Late st Contact Info) Description 05/06/2024 Refill Family Medicine [address] [address] Damian Shay MD [address] [place] [address] [place] [address] COPD, group C, by GOLD 2017 classification ([facility]) Allergies Active Allergy Reactions Criticality Noted Date Comments Fentanyl Itching 01/22/2015 Itching all over w/patch Hydrocodone 01/19/2015 Throat tightening Ibuprofen 11/17/2017 Advised to avoid due to kidney function Latex 10/03/2009 Rash Lisinopril 12/12/2009 Cough Oxycodone 01/19/2015 Throat tightening Tramadol 01/19/2015 Itchy documented as of this encounter (statuses as of 05/06/2024) Medications Aspirin 81 MG Tablet Take 1 [...] MORNING 90 Tablet 3 07/07/19 24 Active Losartan Potassium 25 MG Oral Tablet (Cozaar) TAKE BY MOUTH 2 TABLETS (50 MG) DAILY IN THE MORNING 180 Tablet 3 07/07/19 24 Active Sertraline HCl 50 MG Oral Tablet (Zoloft)Indication s:Depression with anxiety TAKE 1 TABLET BY MOUTH EVERY DAY 90 Tablet 3 07/07/19 24 Active Ventolin HFA 108 (90 Base) MCG/ACT Inhalation Aerosol SolutionIndication s:COPD, group B, by GOLD 2017 classification ([facility]) INHALE 2 PUFFS BY MOUTH EVERY 4 HOURS NEEDED FOR COUGH OR WHEEZING 54 g 1 07/07/19 24 Active Rosuvastatin Calcium 10 MG Oral Tablet (Crestor)Indicatio ns:Hyperlipidemia with target LDL less than 130 TAKE 1 TABLET BY MOUTH EVERY DAY IN THE MORNING 90 Tablet 3 07/07/19 24 Active Fluticasone-Salmet danielle 500-50 MCG/ACT Inhalation Aerosol Powder Breath Activated (Advair Diskus)Indications :COPD, group C, by GOLD 2017 classification ([facility]) INHALE 1 PUFF BY MOUTH IN THE MORNING AND BEFORE BEDTIME 60 Each 5 05/06/20 24 Active Fluticasone-Salmet danielle 500-50 MCG/ACT Inhalation Aerosol Powder Breath Activated (Wixela Inhub)Indications: COPD, group C, by GOLD 2017 classification ([facility]) Inhale 1 Puff by mouth in the morning and 1 Puff before bedtime. 60 Each 2 02/03/20 24 024 Discontinued documented as of this encounter (statuses as of 05/06/2024) Active Problems Problem Noted Date Diagnosed Date [...] as of this encounter (statuses as of 05/06/2024) Resolved Problems Problem Noted Date Diagnosed Date [...] to breast Or apical thickening. [facility]. 06/07 LDL 70. Gluc 109. TSH WNL [...] as of this encounter (statuses as of 05/06/2024) Immunizations Name Administration Dates Next Due COVID-19 [...] encounter Miscellaneous Notes * Telephone Encounter - Nakita Love [facility] - 05/06/2024 7:03 PM ESTSigned Prescriptions: Disp Refills Fluticasone-Salmeterol 500-50 MCG/ACT Inha*60 Each5 Sig: INHALE 1 PUFF BY MOUTH IN THE MORNING AND BEFORE BEDTIMEAuthorizing Provider: Gabriel SHAY User: NAKITA LOVE documented in this encounter Plan of Treatment Upcoming Encounters Date Type Department Care Team (Late st Contact Info) Description 09/16/2024 9:40 AM EDT [facility] [place] [address] Flaquita Lucas PA-C [address] [place] [address] [place] [address] Health Maintenance Due Date Last Done Comments Alpha-1 Antitrypsin 1955 Zoster Vaccines (2 of 3) 03/07/2015 01/10/2015 Adult Wellness Visit 11/11/2015 11/10/2014 CKD PHOS USE SMARTSET 68250 03/31/2024 110 11/2022, 02/05/2022, 01/31/2021, Additional history exists DTap/Tdap Vaccines (2 - Td or Tdap) 03/14/2025 03/14/2015, 09/26/2008 Albumin/Creatinine Ratio 03/18/20252 024, 03/31/2023, 02/05/2022, Additional history exists CKD HGB USE SMARTSET 10149 03/18/202503/18, 03/31/2023, 10/15/2021, Additional history exists Depression Monitoring 03/18/2025 03/18/2024 HbA1c 03/18/2025 03/18/2024, 0 11/2022, 02/05/2022, Additional history exists O2 ASSESSMENT COMPLETED IN PAST YEAR FOR COPD 03/18/2025 03/18/2024 Pneumococcal Vaccine: 65+ Years Completed 11/10/2014, 09/26/2008 COVID-19 Vaccine Completed [...] group C, by GOLD 2017 classification ([facility]) documented in this encounter Care Teams Oxyhydrogen Welder Relationship Specialty Start Date End Date Damian Shay MD [address] [place] [address] [place] [id number] PCP - General Family Medicine 10/31/20 documented as of this encounter
[2024-10-02 16:20] LABS: Basophils # (auto) 0.01 K/uL (0.00-0.20); Basophils % (auto) 0.1 %; Hematocrit (blood only) 39.1 % (37.0-47.0); Hemoglobin 12.7 g/dl (12.0-16.0); Immature Granulocytes # (auto) 0.02 K/uL (0.01-0.20); Immature Granulocytes % (auto) 0.2 %; Lymphocytes # (auto) 0.82 K/uL (1.20-3.40); Lymphocytes % (auto) 10.1 %; Mean Corpuscular Hemoglobin 30.5 pg (25.0-34.0); Mean Corpuscular Hgb Conc 32.5 g/dL (32.0-36.0); Mean Platelet Volume 11.8 fL (9.4-12.4); Monocytes # (auto) 0.76 K/uL (0.11-0.59); Monocytes % (auto) 9.4 %; Neutrophils # (auto) 6.49 K/uL (1.40-6.50); Neutrophils % (auto) 80.2 %; Platelet Count 107 K/uL (130-400); RDW Coefficient of Variation 13.2 % (11.5-14.5); RDW Standard Deviation 45.4 fL (36.4-46.3); Red Blood Count 4.16 M/uL (4.20-5.40)
--- NOTE | 2024-10-02 16:31 | Emergency Department Note ---
Impression & Plan Pneumonia, COPD with exacerbation, Shortness of breath ED Provider Note NAME: VALERIE PRICE AGE: 89 SEX: F : 1935 ARRIVES VIA: Ambulance INFORMANT: Patient ED PROVIDER(S): Alexis Sánchez DO CHIEF COMPLAINT: Cough, congestion and shortness of breath HPI: Patient is an 89-year-old female with a past medical history of COPD, hypertension, CKD and dyslipidemia and previous tobacco abuse who presents to the ER for shortness of breath which started this past Thursday. She notes her son was sick and now she has cough, congestion, and shortness of breath which has been worsening since Thursday. She was found to be hypoxic per EMS and she was brought in. She denies any headache or change in vision. No belly pain, nausea, vomiting, or diarrhea with the exception of when she is coughing sometimes she will cough so bad that she will vomit. No dysuria, urgency, or frequency. ADDITIONAL HISTORY OBTAINED: Per HPI Chronic Medical/Social Conditions Affecting Care: Per HPI PAST MEDICAL HISTORY:See Below PAST SURGICAL HISTORY:See Below FAMILY HISTORY:See Below SOCIAL HISTORY:See Below HOME MEDICATIONS:See Below ALLERGIES:See Below VITALS:See Below PHYSICAL EXAMINATION: GENERAL: Sitting up in bed, alert, ill-appearing, dyspneic with conversation, only able to speak in one-word answers, on nasal cannula EYE EXAM: normal conjunctiva. PERRL and EOM's grossly intact. OROPHARYNX: mucous membranes are moist NECK: supple, no nuchal rigidity, no adenopathy, non-tender LUNGS: Diffuse wheezing bilaterally with poor air movement. Normal chest wall mechanics HEART: no murmurs, S1 normal and S2 normal ABDOMEN: abdomen soft, non-tender, normo-active bowel sounds, no masses, no rebound or guarding. UPPER EXTREMITIES: upper extremities are grossly normal. LOWER EXTREMITIES: No pitting edema. NEURO EXAM: Normal sensorium, cranial nerves II-XII grossly intact, normal speech, no gross weakness of arms, no gross weakness of legs. MEDICAL DECISION MAKING: Patient is an 89-year-old female who presents to the ER for above-stated complaint. IV was established and blood work was obtained. Labs showed no significant leukocytosis or anemia. BMP with a creatinine 1.5. LFTs bilirubin was unremarkable. Troponin was mildly elevated at 109. Pro-Paulino at 0.75. Viral panel was negative. Chest x-ray was consistent with pneumonia which is also consistent with her symptoms. She was updated bedside. Patient was given IV Rocephin, IV fluids, hour-long DuoNeb, and oral doxycycline. Elevated troponin due to fevers likely secondary to her illness rather than an type I ischemia. Case was discussed with the hospitalist for further evaluation management treatment. Respiratory rate did improve. Consults/Care Managements Discussions: Per MDM Triage Nursing notes reviewed. Limited review of prior medical records performed Vital Signs: reviewed and remarkable for hypoxic Differential diagnosis: Differential diagnoses includes but is not limited to pneumonia, bronchitis, COPD/Asthma exacerbation, pneumothorax, pulmonary embolism, congestive heart failure, acute coronary syndrome ER treatment provided: See below Diagnostics interpreted by me include EKG and cardiac monitoring as listed below: -Cardiac Monitoring: An order was placed for continuous cardiac monitoring. The monitor shows a rate of 70 with sinus rhythm. -ECG: Sinus rhythm rate 87 Normal axis No PVCs QTc 430 -Laboratory studies:Interpreted by me as stated above in MDM and shown below. Imaging studies: Xrays: As interpreted by me: Portable AP upright 1 view of the chest shows right lower lobe infiltrate CTs show: none Procedures:none Past Med/Surg History Problem List (Updated 10/02/24 @ 21:43 by Alexis Sánchez DO) Shortness of breath (Acute) Acute kidney injury superimposed on CKD COPD with exacerbation (Acute) Pneumonia (Acute) Medical History GERD with esophagitis Depression with anxiety Female stress incontinence Mild mitral regurgitation Mixed hyperlipidemia CKD (chronic kidney disease) stage 3, GFR 30-59 ml/min 3b Tobacco abuse Dyslipidemia HTN (hypertension) COPD (chronic obstructive pulmonary disease) Arthritis of left hip Surgical History History of vitrectomy History of cervical spinal surgery S/P wrist surgery S/P cataract surgery Family History Other Heart disease Social History (Updated 10/02/24 @ 17:16 by Pricila Solomon PA-C) Smoking Status: Former smoker Tobacco Type: Cigarettes Smoking End Date: three years ago; Hx Alcohol Use: No Hx Substance Use: No Preferred Language: Luxembourgish Scenic Designer Required: No Beliefs That Will Affect Care: None Current Living Situation: Other Current Living Situation Comment: Lives with son Other Information That Helps Us Care for You: No Feels Safe at Home: Yes Safety Concerns: Feels Safe At This Time Assistive Devices: Denture - Upper, Denture - Lower and Oxygen - Continuous Allergies Allergies Allergy/AdvReac Type Severity Reaction Status Date / Time hydrocodone Allergy Severe THROAT Verified 10/02/24 17:39 TIGHTENING, ITCHING, INABILITY TO SLEEP oxycodone Allergy Severe THROAT Verified 10/02/24 17:39 TIGHTENING, ITCHING, INABILITY TO SLEEP fentanyl Allergy Intermediate ITCHY ALL Verified 10/02/24 17:39 OVER latex Allergy Intermediate SKIN Verified 10/02/24 17:39 BLISTERS tramadol Allergy Intermediate ITCHINESS, Verified 10/02/24 17:39 INABILITY TO SLEEP lisinopril Allergy Unknown RESPIRATORY Verified 10/02/24 17:39 DISTRESS ibuprofen AdvReac Unknown AVOIDS D/T Verified 10/02/24 17:39 KIDNEY FUNCTION Home Meds Home Medications Medication Instructions Recorded Confirmed albuterol sulfate 90 mcg/actuation 2 inh inhalation Q4H PRN Shortness 10/02/24 10/02/24 aerosol inhaler Of Breath Or Wheezing amlodipine 5 mg tablet 5 mg PO DAILY 10/02/24 10/02/24 aspirin 81 mg tablet 81 mg PO DAILY 10/02/24 10/02/24 fluticasone 500 mcg-salmeterol 50 1 inh inhalation BID 10/02/24 10/02/24 mcg/dose blistr powdr for inhalation losartan 25 mg tablet 50 mg PO DAILY 10/02/24 10/02/24 rosuvastatin 10 mg tablet 10 mg PO DAILY 10/02/24 10/02/24 sertraline 50 mg tablet 50 mg PO DAILY 10/02/24 10/02/24 Results & Data (ED) Vital Signs Vital Signs - 24 hr 10/02/24 14:58 10/02/24 15:48 10/02/24 16:00 Temperature 37.5 C Temperature Source Oral Pulse Rate 89 79 Pulse Rate [Apical] 74 Respiratory Rate 21 24 Respiratory Depth Normal Blood Pressure 112/85 Blood Pressure [Left Arm] 104/57 L Blood Pressure Mean 94 Blood Pressure Mean [Left Arm] 72 Pulse Oximetry 93 96 Oxygen Delivery Method Room Air Sepsis Recent Fever Within 48 Hours No Sepsis New/Unexplained Change in Mental Status No Sepsis Action Taken by Nursing No Action Required 10/02/24 16:00 10/02/24 16:37 10/02/24 16:44 Temperature Temperature Source Pulse Rate Pulse Rate [Apical] Respiratory Rate Respiratory Depth Blood Pressure Blood Pressure [Left Arm] Blood Pressure Mean Blood Pressure Mean [Left Arm] Pulse Oximetry 93 92 Oxygen Delivery Method Nasal Cannula Room Air Room Air Sepsis Recent Fever Within 48 Hours Sepsis New/Unexplained Change in Mental Status Sepsis Action Taken by Nursing Laboratory Data 10/02/24 15:03 10/02/24 15:03 Lab Results 10/02/24 10/02/24 Range/Units 15:03 16:45 WBC 8.10 (4.8-10.8) K/ul RBC 4.16 L (4.20-5.40) M/uL Hgb 12.7 (12.0-16.0) g/dl Hct 39.1 (37.0-47.0) % MCV 94.0 (80.0-100.0) fL MCH 30.5 (25.0-34.0) pg MCHC 32.5 (32.0-36.0) g/dL RDW Std Deviation 45.4 (36.4-46.3) fL RDW Coeff of Jl 13.2 (11.5-14.5) % Plt Count 107 L (130-400) K/uL MPV 11.8 (9.4-12.4) fL Immature Gran % (Auto) 0.2 % Neut % (Auto) 80.2 % Lymph % (Auto) 10.1 % Mora % (Auto) 9.4 % Eos % (Auto) 0.0 % Baso % (Auto) 0.1 % Neut # (Auto) 6.49 (1.40-6.50) K/uL Lymph # (Auto) 0.82 L (1.20-3.40) K/uL Mora # (Auto) 0.76 H (0.11-0.59) K/uL Eos # (Auto) 0.00 (0.00-0.50) K/uL Baso # (Auto) 0.01 (0.00-0.20) K/uL Immature Gran # (Auto) 0.02 (0.01-0.20) K/uL Sodium 139 (136-145) mmol/L Potassium 3.8 (3.5-5.1) mmol/L Chloride 103 (98-107) mmol/L Carbon Dioxide 26 (21-32) mmol/L Anion Gap 10 (3-11) BUN 26 H (6-23) mg/dl Creatinine 1.52 H (0.6-1.2) mg/dl Est Cr Clr Drug Dosing 22.5 ml/min eGFR 32.99 BUN/Creatinine Ratio 17.1 (10-20) Glucose 172 H (70-99(Fasting)) mg/dl Calcium 9.6 (8.6-10.3) mg/dl Total Bilirubin 0.6 (0.2-1.0) mg/dl AST 26 (13-39) U/L ALT 16 (7-52) U/L Alkaline Phosphatase 52 (34-104) U/L Troponin I High Sens 109.8 H* (0-14) pg/ml Total Protein 7.9 (6.0-8.3) gm/dl Albumin 4.5 (3.4-5.0) gm/dl Globulin 3.4 (2.5-4.0) gm/dl Albumin/Globulin Ratio 1.3 (0.9-2) Lipase 10 L (11-82) U/L Procalcitonin 0.75 H (0-0.5) ng/ml SARS-CoV-2 (PCR) NEGATIVE (Negative) Influenza Type A (PCR) Negative (Neg) Influenza Type B (PCR) Negative (Neg) RSV (RT-PCR) Negative (Neg) Administered Medications Albuterol (Albut/Ipratrop 3mg/0.5mg Neb 3 Ml Vial) 3 ml NEB QIDR COUNT INCLUDES THE [facility]; Protocol Stop: 11/01/24 18:59 Last Admin: 10/02/24 20:22 Dose: Not Given Documented By: LGB Guaifenesin (Guaifenesin 600 Mg Tabcr) 600 mg PO Q12 COUNT INCLUDES THE [facility] Stop: 11/01/24 20:59 Last Admin: 10/02/24 21:02 Dose: 600 mg Documented By: MRL Heparin Sodium (Porcine) (Heparin Sod 5,000 Unit/0.5 Ml Vial) 5,000 units SQ Q12 COUNT INCLUDES THE [facility] Stop: 11/01/24 20:59 Last Admin: 10/02/24 21:02 Dose: 5,000 units Documented By: IGNACIA Sodium Chloride (Nss) 1,000 mls @ 80 mls/hr IV .[id number] RUDY Stop: 10/03/24 07:59 Last Admin: 10/02/24 21:02 Dose: 80 mls/hr Documented By: IGNACIA Discontinued Medications Albuterol (Albut/Ipratrop 3mg/0.5mg Neb 3 Ml Vial) 12 ml NEB ONE ONE; Protocol Stop: 10/02/24 16:28 Last Admin: 10/02/24 16:42 Dose: 12 ml Documented By: NALLELY Doxycycline Hyclate (Doxycycline Hyclate 100 Mg Cap) 100 mg PO NOW STA Stop: 10/02/24 16:48 Last Admin: 10/02/24 17:07 Dose: 100 mg Documented By: JASON Ceftriaxone Sodium (Rocephin) 2,000 mg in 50 mls @ 100 mls/hr IV NOW STA Stop: 10/02/24 17:16 Last Infusion: 10/02/24 17:51 Dose: Infused Documented By: Admin: 10/02/24 17:08 Dose: 100 mls/hr Documented By: JASON Methylprednisolone (Methylprednisolone 125 Mg/2 Ml Vial) 40 mg IV NOW STA Stop: 10/02/24 16:28 Last Admin: 10/02/24 16:41 Dose: 40 mg Documented By: NALLELY Imaging Data Radiologist's Impression: Chest X-Ray 10/02/24 16:07 Chest radiograph, one view History: Cough Comparison: 03/07/2015 Findings: Single AP view of the chest performed. There is new small patchy right basilar opacity. No pneumothorax. The cardiomediastinal silhouette is within normal limits. Normal pulmonary vascularity. No visualized bony or soft tissue abnormality. Impression: Right basilar small area of patchy opacity concerning for infection Electronically signed by Meng Roach 10-02-2024 4:42 PM Discharge Plan Visit Data Chief Complaint: Illness Stated Complaint: ILLNESS, COUGH, VOMITING ED Provider: Alexis Sánchez Discharge Problem: Pneumonia, COPD with exacerbation, Shortness of breath Patient Disposition: Admitted As Inpatient Condition: Fair Discharge Instructions Interventions: ED Discharge Assessment Last Done: 10/02/24 18:52 Discharge Problem: Pneumonia Qualifiers: Pneumonia type: due to unspecified organism Laterality: right Lung location: l ower lobe of lung Qualified Code(s): J18.9 - Pneumonia, unspecified organism
[2024-10-02] MEDS: methylPREDNISolone 125 MG/2 ML VIAL IV STA (16:41)
[2024-10-02 16:42] LABS: Albumin Globulin Ratio 1.3 (0.9-2); Albumin Level 4.5 gm/dl (3.4-5.0); BUN Creatinine Ratio 17.1 (10-20); Bilirubin,Total 0.6 mg/dl (0.2-1.0); Calcium 9.6 mg/dl (8.6-10.3); Creatinine Clr Calc Pharmacy 22.5 ml/min; Globulin 3.4 gm/dl (2.5-4.0); Potassium 3.8 mmol/L (3.5-5.1); Total Protein 7.9 gm/dl (6.0-8.3)
[2024-10-02] MEDS: ALBUT/IPRATROP 3MG/0.5MG NEB 3 ML VIAL NEB ONE (16:42)
--- NOTE | 2024-10-02 16:43 | XRay Report ---
Chest radiograph, one view History: Cough Comparison: 03/07/2015 Findings: Single AP view of the chest performed. There is new small patchy right basilar opacity. No pneumothorax. The cardiomediastinal silhouette is within normal limits. Normal pulmonary vascularity. No visualized bony or soft tissue abnormality. Impression: Right basilar small area of patchy opacity concerning for infection Electronically signed by Meng Roach 10-02-2024 4:42 PM
[2024-10-02 16:51] LABS: Troponin I High Sensitivity 109.8 pg/ml (0-14)
--- NOTE | 2024-10-02 17:03 | History & Physical Report ---
Date of Service October 02, 2024 Assessment & Plan (1) Pneumonia: (2) COPD with exacerbation: (3) Acute kidney injury superimposed on CKD: (4) HTN (hypertension): (5) Dyslipidemia: Plan This is an 89 y/o female with COPD, CKD3b, HTN, dyslipidemia, GERD, and other history as noted below who presents to the ED with worsening COPD symptoms and cough for past 1-2 days. EMS report reviewed - not to be hypoxic on initial evaluation at 89% on room air with conversational dyspnea. In the ED, work-up revealed right basilar opacity on chest x-ray (personally reviewed). Due to severity of symptoms, initial hypoxia, and finding of pneumonia on imaging, pt was referred for admission for further management. #Right basilar pneumonia #COPD with exacerbation - Admit to med telemetry - Check VBG, procal - Continue steroids with prednisone 40 mg daily for a total of five days - Continue ceftriaxone started in the ED, add azithromycin - Scheduled guaifenesin, prn anti-tussives - Wean O2 as able with goal pulse ox 88-90% - Scheduled DuoNeb QID, with up Q2hrs PRN - Labs in the AM - CBC, BMP #Elevated troponin - suspect demand ischemia due to pneumonia - Trend troponin - Repeat EKG in the AM #DIPIKA on CKD - baseline creatinine around 1.2, today 1.52 - Encourage oral intake, will give one liter of IVF at 80 cc/hr - Repeat in the AM #Hypertension - BPs borderline in the ED - Continue to monitor - Hold home BP meds for now #Dyslipidemia - Chronic, stable - continue statin Pt seen and reviewed with collaborating physician, Dr. Jones. Plan of care d iscussed and as outlined above. Code status: full code DVT prophylaxis: subQ heparin Consider PT/OT evaluations once more medically stable. Zoila Solomon PA-C History of Present Illness Primary Care Provider: Damian Shay MD This is an 89 y/o female with COPD, CKD3b, HTN, dyslipidemia, GERD, and other history as noted below who presents to the ED with worsening COPD symptoms and cough for past 1-2 days. Pt reports that she started with cold symptoms a few days ago - sinus congestion, runny nose. However, has been worsening over the last two days with a cough that is intermittently productive of thick white mucus. Associated wheezing and dyspnea. She has a history of underlying COPD which has been worse since being sick. She cannot even recall if she has been using her inhalers. Subjective fever yesterday but thinks it broke overnight, had sweats. Denies LORA, chest pain, ST, abdominal pain. Associated diarrhea today. No issues with urination other than incontinence with coughing. Does not require oxygen at home. Former smoker - quit three years ago. Son was sick with similar symptoms first but he is now better. Allergies Allergy/AdvReac Type Severity Reaction Status Date / Time hydrocodone Allergy Severe THROAT Verified 10/02/24 17:39 TIGHTENING, ITCHING, INABILITY TO SLEEP oxycodone Allergy Severe THROAT Verified 10/02/24 17:39 TIGHTENING, ITCHING, INABILITY TO SLEEP fentanyl Allergy Intermediate ITCHY ALL Verified 10/02/24 17:39 OVER latex Allergy Intermediate SKIN Verified 10/02/24 17:39 BLISTERS tramadol Allergy Intermediate ITCHINESS, Verified 10/02/24 17:39 INABILITY TO SLEEP lisinopril Allergy Unknown RESPIRATORY Verified 10/02/24 17:39 DISTRESS ibuprofen AdvReac Unknown AVOIDS D/T Verified 10/02/24 17:39 KIDNEY FUNCTION Home Medications Medication Instructions Recorded Confirmed Type albuterol sulfate 90 mcg/actuation 2 inh inhalation Q4H PRN Shortness 10/02/24 10/02/24 History aerosol inhaler Of Breath Or Wheezing amlodipine 5 mg tablet 5 mg PO DAILY 10/02/24 10/02/24 History aspirin 81 mg tablet 81 mg PO DAILY 10/02/24 10/02/24 History fluticasone 500 mcg-salmeterol 50 1 inh inhalation BID 10/02/24 10/02/24 History mcg/dose blistr powdr for inhalation losartan 25 mg tablet 50 mg PO DAILY 10/02/24 10/02/24 History rosuvastatin 10 mg tablet 10 mg PO DAILY 10/02/24 10/02/24 History sertraline 50 mg tablet 50 mg PO DAILY 10/02/24 10/02/24 History Past Med/Surg History Problem List (Updated 10/02/24 @ 19:15 by Pricila Solomon PA-C) Acute kidney injury superimposed on CKD COPD with exacerbation Pneumonia Medical History GERD with esophagitis Depression with anxiety Female stress incontinence Mild mitral regurgitation Mixed hyperlipidemia CKD (chronic kidney disease) stage 3, GFR 30-59 ml/min 3b Tobacco abuse Dyslipidemia HTN (hypertension) COPD (chronic obstructive pulmonary disease) Arthritis of left hip Surgical History History of vitrectomy History of cervical spinal surgery S/P wrist surgery S/P cataract surgery Family History Other Heart disease Social History (Updated 10/02/24 @ 17:16 by Pricila Solomon PA-C) Smoking Status: Former smoker Tobacco Type: Cigarettes Hx Alcohol Use: No Hx Substance Use: No Preferred Language: Latvian Feels Safe at Home: Yes Review of Systems Review of Systems: All systems reviewed & are unremarkable except as noted in Subjective Physical Exam Physical Exam: Please see physician note for details of the physical exam Results & Data Results & Data Vital Signs (Past 12 Hours) Vital Signs Temp Pulse Pulse Resp BP BP Pulse Ox 10/02/24 16:44 92 10/02/24 16:37 93 10/02/24 16:00 10/02/24 16:00 74 24 104/57 L 96 10/02/24 15:48 79 10/02/24 14:58 37.5 C 89 21 112/85 93 O2 Del Method 10/02/24 16:44 Room Air 10/02/24 16:37 Room Air 10/02/24 16:00 Nasal Cannula 10/02/24 16:00 10/02/24 15:48 10/02/24 14:58 Room Air Laboratory Results Lab Results 10/02/24 Range/Units 15:03 WBC 8.10 (4.8-10.8) K/ul RBC 4.16 L (4.20-5.40) M/uL Hgb 12.7 (12.0-16.0) g/dl Hct 39.1 (37.0-47.0) % MCV 94.0 (80.0-100.0) fL MCH 30.5 (25.0-34.0) pg MCHC 32.5 (32.0-36.0) g/dL RDW Std Deviation 45.4 (36.4-46.3) fL RDW Coeff of Jl 13.2 (11.5-14.5) % Plt Count 107 L (130-400) K/uL MPV 11.8 (9.4-12.4) fL Immature Gran % (Auto) 0.2 % Neut % (Auto) 80.2 % Lymph % (Auto) 10.1 % [place] % (Auto) 9.4 % Eos % (Auto) 0.0 % Baso % (Auto) 0.1 % Neut # (Auto) 6.49 (1.40-6.50) K/uL Lymph # (Auto) 0.82 L (1.20-3.40) K/uL [place] # (Auto) 0.76 H (0.11-0.59) K/uL Eos # (Auto) 0.00 (0.00-0.50) K/uL Baso # (Auto) 0.01 (0.00-0.20) K/uL Immature Gran # (Auto) 0.02 (0.01-0.20) K/uL Sodium 139 (136-145) mmol/L Potassium 3.8 (3.5-5.1) mmol/L Chloride 103 (98-107) mmol/L Carbon Dioxide 26 (21-32) mmol/L Anion Gap 10 (3-11) BUN 26 H (6-23) mg/dl Creatinine 1.52 H (0.6-1.2) mg/dl Est Cr Clr Drug Dosing 22.5 ml/min eGFR 32.99 BUN/Creatinine Ratio 17.1 (10-20) Glucose 172 H (70-99(Fasting)) mg/dl Calcium 9.6 (8.6-10.3) mg/dl Total Bilirubin 0.6 (0.2-1.0) mg/dl AST 26 (13-39) U/L ALT 16 (7-52) U/L Alkaline Phosphatase 52 (34-104) U/L Troponin I High Sens 109.8 H* (0-14) pg/ml Total Protein 7.9 (6.0-8.3) gm/dl Albumin 4.5 (3.4-5.0) gm/dl Globulin 3.4 (2.5-4.0) gm/dl Albumin/Globulin Ratio 1.3 (0.9-2) Lipase 10 L (11-82) U/L Diagnostic Findings Chest X-Ray 10/02/24 16:07 Chest radiograph, one view History: Cough Comparison: 03/07/2015 Findings: Single AP view of the chest performed. There is new small patchy right basilar opacity. No pneumothorax. The cardiomediastinal silhouette is within normal limits. Normal pulmonary vascularity. No visualized bony or soft tissue abnormality. Impression: Right basilar small area of patchy opacity concerning for infection Electronically signed by Meng Roach 10-02-2024 4:42 PM Medications Administered Discontinued Medications Albuterol (Albut/Ipratrop 3mg/0.5mg Neb 3 Ml Vial) 12 ml NEB ONE ONE; Protocol Stop: 10/02/24 16:28 Last Admin: 10/02/24 16:42 Dose: 12 ml Documented By: NALLELY Methylprednisolone (Methylprednisolone 125 Mg/2 Ml Vial) 40 mg IV NOW STA Stop: 10/02/24 16:28 Last Admin: 10/02/24 16:41 Dose: 40 mg Documented By: NALLELY Supervising Physician Co-Signing Physician Notes Presents with cough and shortness of breath over the past 1-2 days Positive sick contact in son Noted to be hypoxic per EMS On exam, General: In distress getting nebs Eyes: PERRL, conjunctivae normal, not pale, anicteric sclerae, EOM intact bilaterally ENMT: External ear and nose normal, oropharynx normal Respiratory: In resp distress, +wheeze, +cough Cardiovascular: RRR S1 S2 Gastrointestinal (Abdomen): Abdomen is not distended, soft, non-tender to palpation, no guarding, no palpable hepatosplenomegaly, normal bowel sounds Musculoskeletal: No pedal edema Neurologic: Alert and oriented x 3, No focal weakness, sensation grossly intact Psychiatric: Euthymic affect Labs notable for elevated trop CXR noted right lung opacity Community acquired pneumonia Follow up resp PCR Ceftriaxone and azithromycin Scheduled nebs Prednisone 40mg daily to complete 5 days Oxygen supplementation as needed Agree with plans as detailed by Tia Solomon PA-C I spent a total of 35 minutes coordinating, documenting and providing care for this patient excluding time spent in performance of separately billed services (1) Pneumonia Laterality: right Lung location: lower lobe of lung Pneumonia type: due to unspecified organism Qualified Code(s): J18.9 - Pneumonia, unspecified organism (4) HTN (hypertension) Hypertension type: primary hypertension Qualified Code(s): I10 - Essential (primary) hypertension
[2024-10-02] MEDS: DOXYCYCLINE HYCLATE 100 MG CAP PO STA (17:07)
[2024-10-02] MEDS: cefTRIAXone SODIUM 2,000 MG/50 ML BAG IV STA (17:08)
[2024-10-02] MEDS ORDERED: ALBUT/IPRATROP 3MG/0.5MG NEB 3 ML VIAL NEB PRN (17:38)
[2024-10-02 17:40] LABS: Influenza A virus by PCR Negative (Neg); Influenza B virus by PCR Negative (Neg); RSV by PCR Negative (Neg); SARS CoV2 RNA(COVID-19) Ceph NEGATIVE (Negative)
[2024-10-02 17:51] LABS: HCO3 VBG 23 mmol/L; Oxygen Saturation VBG 66.1 %; PCO2 VBG 40 mmHg (38-50); PO2 VBG 31 mmHg; pH VBG 7.37 (7.36-7.41)
[2024-10-02] MEDS ORDERED: BENZONATATE 100 MG CAPSULE PO PRN (19:35)
[2024-10-02] MEDS ORDERED: ACETAMINOPHEN 325 MG TAB PO PRN (19:35)
[2024-10-02] MEDS: ALBUT/IPRATROP 3MG/0.5MG NEB 3 ML VIAL NEB SCH (20:22)
[2024-10-02] MEDS: guaiFENesin 600 MG TABCR PO SCH (21:02)
[2024-10-02] MEDS: SODIUM CHLORIDE 0.9% 1,000 ML IV SCH (21:02)
[2024-10-02] MEDS: HEPARIN SOD 5,000 UNIT/0.5 ML VIAL SQ SCH (21:02)
[2024-10-03 02:51] LABS: Basophils # (auto) 0.01 K/uL (0.00-0.20); Basophils % (auto) 0.1 %; Hematocrit (blood only) 35.9 % (37.0-47.0); Hemoglobin 11.7 g/dl (12.0-16.0); Immature Granulocytes # (auto) 0.03 K/uL (0.01-0.20); Immature Granulocytes % (auto) 0.4 %; Lymphocytes # (auto) 0.69 K/uL (1.20-3.40); Lymphocytes % (auto) 9.8 %; Mean Corpuscular Hemoglobin 30.5 pg (25.0-34.0); Mean Corpuscular Hgb Conc 32.6 g/dL (32.0-36.0); Mean Corpuscular Volume 93.7 fL (80.0-100.0); Mean Platelet Volume 11.3 fL (9.4-12.4); Monocytes # (auto) 0.28 K/uL (0.11-0.59); Neutrophils # (auto) 6.04 K/uL (1.40-6.50); Neutrophils % (auto) 85.7 %; Platelet Count 108 K/uL (130-400); RDW Coefficient of Variation 13.2 % (11.5-14.5); RDW Standard Deviation 45.4 fL (36.4-46.3); Red Blood Count 3.83 M/uL (4.20-5.40); White Blood Count 7.05 K/ul (4.8-10.8)
[2024-10-03 03:05] LABS: Calcium 9.3 mg/dl (8.6-10.3); Creatinine Clr Calc Pharmacy 20.4 ml/min; Potassium 3.8 mmol/L (3.5-5.1)
[2024-10-03 07:52] LABS: Appearance Urine Clear (Clear); Bacteria Urine Automated None Seen (None Seen); Bilirubin Urine Negative (Negative); Blood Urine Negative (Negative); Cast Urine Automated >20 /lpf (0-2); Color Urine Yellow; Glucose Urine UA Negative (Negative); Hyaline Casts Urine Present /lpf (None Presnt); Ketones Urine Trace (Negative); Leukocyte Esterase Urine Trace (Negative); Nitrite Urine Negative (Negative); Protein Urine Trace (Negative); Urobilinogen Urine Negative (Negative); WBC Urine Automated 0-5 /hpf (0-5)
[2024-10-03] MEDS: FLUTICASONE/VILANTEROL 200/25MCG 14 PUFFS/INHALER INH SCH (08:02)
[2024-10-03] MEDS: ROSUVASTATIN CALCIUM 10 MG TAB PO SCH (08:03)
[2024-10-03] MEDS: ASPIRIN 81 MG ECTAB PO SCH (08:03)
[2024-10-03] MEDS: predniSONE 20 MG TAB PO SCH (08:03)
[2024-10-03] MEDS: AZITHROMYCIN 250 MG TAB PO SCH (08:03)
[2024-10-03] MEDS: SERTRALINE HCL 50 MG TABLET PO SCH (08:03)
--- NOTE | 2024-10-03 13:12 | Electrocardiogram Report ---
Test Reason : Blood Pressure : */* mmHG Vent. Rate : 56 BPM Atrial Rate : 56 BPM P-R Int : 136 ms QRS Dur : 82 ms QT Int : 444 ms P-R-T Axes : 74 52 60 degrees QTcB Int : 428 ms Sinus bradycardia Otherwise normal ECG When compared with ECG of 02-Oct-2024 15:01, (unconfirmed) Vent. rate has decreased by 31 bpm Confirmed by Jimenez Darden ([id number]) on 10/03/2024 1:12:26 PM Referred By: REFERRED SELF Confirmed By: Jimenez Darden
[2024-10-03] MEDS: cefTRIAXone SODIUM 2,000 MG/50 ML BAG IV SCH (17:15)
--- NOTE | 2024-10-03 18:24 | Hospitalist Progress Note ---
Date of Service October 03, 2024 Assessment & Plan (1) Pneumonia: (2) COPD with exacerbation: (3) Acute kidney injury superimposed on CKD: (4) HTN (hypertension): (5) Dyslipidemia: Plan Ms. Bolaños is an 89 y/o female with COPD, CKD3b, HTN, dyslipidemia, GERD, was admitted for acute hypoxic respiratory failure 2/2 copd exacerbation #Acute hypoxic resp failure, multifactorial #Right basilar pneumonia #COPD with exacerbation subjective improvement with current regimen - Continue steroids with prednisone 40 mg daily 2/5 - Continue ceftriaxone and azithromycin - Scheduled guaifenesin, prn anti-tussives - Wean O2 as able with goal pulse ox 88-90% - Scheduled DuoNeb QID, with up Q2hrs PRN #Elevated troponin - suspect demand ischemia due to pneumonia - downtrending, low suspicion for acs #DIPIKA on CKD - baseline creatinine around 1.2, uptrending; relatively hypotensive on admission - Encourage oral intake, will give one liter of IVF at 80 cc/hr - likely iso acute illness, will repeat in am and if uptrending will pursue US and other eval #Hypertension - BPs borderline in the ED - Continue to monitor - Hold home BP meds for now #Dyslipidemia - Chronic, stable - continue statin Code status: full code DVT prophylaxis: subQ heparin Admission and Anticipated Discharge Date Admission Date: October 02, 2024 Subjective reports subjective improvement in symptomss still with some "gurgling" but states she does not feel like she is as short of breath and she feels like its easier to take a deep breath patient denies any new acute concerns Physical Exam Constitutional: WD/WN, vitals as above Respiratory: scatter expiatory wheezing and rhonchi Cardiovascular: RRR, no murmur, no edema Results & Data Results & Data Vital Signs (Past 12 Hours) Vital Signs Temp Pulse Pulse Pulse Resp BP Pulse Ox 10/03/24 16:42 36.7 C 89 20 118/56 L 96 10/03/24 15:36 94 H 10/03/24 14:13 71 18 96 10/03/24 11:31 10/03/24 11:25 36.5 C 65 20 108/64 96 10/03/24 11:09 67 20 95 10/03/24 07:29 62 18 95 10/03/24 07:16 36.6 C 56 L 16 108/64 96 O2 Del Method O2 Flow Rate 10/03/24 16:42 Nasal Cannula 3 10/03/24 15:36 10/03/24 14:13 Nasal Cannula 2 10/03/24 11:31 Nasal Cannula 2 10/03/24 11:25 Nasal Cannula 1.5 10/03/24 11:09 Nasal Cannula 2 10/03/24 07:29 Nasal Cannula 3 10/03/24 07:16 Nasal Cannula 3 Laboratory Results Short CBC 10/03/24 Range/Units 02:33 WBC 7.05 (4.8-10.8) K/ul Hgb 11.7 L (12.0-16.0) g/dl Hct 35.9 L (37.0-47.0) % Plt Count 108 L (130-400) K/uL BMP 10/03/24 02:33 Sodium 139 Potassium 3.8 Chloride 106 Carbon Dioxide 23 BUN 37 H Creatinine 1.68 H Glucose 188 H Calcium 9.3 Urine 10/03/24 Range/Units 06:18 Urine Color Yellow Urine Appearance Clear (Clear) Urine pH 5.0 (4.5-7.5) Ur Specific [place] 1.020 (1.000-1.030) Urine Protein Trace H (Negative) Urine Glucose (UA) Negative (Negative) Medications Administered Home Medications Medication Instructions Recorded Confirmed Last Taken albuterol sulfate 90 mcg/actuation 2 inh inhalation Q4H PRN Shortness 10/02/24 10/02/24 10/01/24 aerosol inhaler Of Breath Or Wheezing amlodipine 5 mg tablet 5 mg PO DAILY 10/02/24 10/02/24 09/30/24 aspirin 81 mg tablet 81 mg PO DAILY 10/02/24 10/02/24 09/30/24 fluticasone 500 mcg-salmeterol 50 1 inh inhalation BID 10/02/24 10/02/24 10/02/24 mcg/dose blistr powdr for inhalation losartan 25 mg tablet 50 mg PO DAILY 10/02/24 10/02/24 09/30/24 rosuvastatin 10 mg tablet 10 mg PO DAILY 10/02/24 10/02/24 09/30/24 sertraline 50 mg tablet 50 mg PO DAILY 10/02/24 10/02/24 09/30/24 Active Medications Generic Name Dose Route Start Last Admin Trade Name Freq PRN Reason Stop Dose Admin Albuterol 3 ml 10/02/24 19:00 10/03/24 14:12 Albut/Ipratrop 3mg/0.5mg Neb 3 Ml Vial NEB 11/01/24 18:59 3 ml QIDR RUDY Administration Protocol Aspirin 81 mg 10/03/24 09:00 10/03/24 08:03 Aspirin 81 Mg Ectab PO 11/02/24 08:59 81 mg DAILY RUDY Administration Azithromycin 500 mg 10/03/24 09:00 10/03/24 08:03 Azithromycin 250 Mg Tab PO 10/08/24 08:59 500 mg QAM RUDY Administration Fluticasone/Vilanterol 1 puffs 10/03/24 09:00 10/03/24 08:02 Fluticasone/Vilanterol 200/25mcg 14 Puffs/Inhaler INH 11/02/24 08:59 1 puffs DAILY RUDY Administration Guaifenesin 600 mg 10/02/24 21:00 10/03/24 08:03 Guaifenesin 600 Mg Tabcr PO 11/01/24 20:59 600 mg Q12 RUDY Administration Heparin Sodium (Porcine) 5,000 units 10/02/24 21:00 10/03/24 08:07 Heparin Sod 5,000 Unit/0.5 Ml Vial SQ 11/01/24 20:59 5,000 units Q12 RUDY Administration Ceftriaxone Sodium 2,000 mg in 50 mls @ 100 mls/hr 10/03/24 17:00 10/03/24 18:19 Rocephin IV 10/06/24 17:29 Infused Q24H RUDY Infusion Prednisone 40 mg 10/03/24 09:00 10/03/24 08:03 Prednisone 20 Mg Tab PO 10/07/24 08:59 40 mg DAILY RUDY Administration Rosuvastatin Calcium 10 mg 10/03/24 09:00 10/03/24 08:03 Rosuvastatin Calcium 10 Mg Tab PO 11/02/24 08:59 10 mg DAILY RUDY Administration Sertraline HCl 50 mg 10/03/24 09:00 10/03/24 08:03 Sertraline Hcl 50 Mg Tablet PO 11/02/24 08:59 50 mg DAILY RUDY Administration (1) Pneumonia Laterality: right Lung location: lower lobe of lung Pneumonia type: due to unspecified organism Qualified Code(s): J18.9 - Pneumonia, unspecified organism (4) HTN (hypertension) Hypertension type: primary hypertension Qualified Code(s): I10 - Essential (primary) hypertension
[2024-10-04 06:28] LABS: Hemoglobin 11.5 g/dl (12.0-16.0); Mean Corpuscular Hemoglobin 30.5 pg (25.0-34.0); Mean Corpuscular Hgb Conc 32.9 g/dL (32.0-36.0); Mean Corpuscular Volume 92.8 fL (80.0-100.0); Mean Platelet Volume 11.5 fL (9.4-12.4); Platelet Count 146 K/uL (130-400); RDW Coefficient of Variation 13.3 % (11.5-14.5); RDW Standard Deviation 45.7 fL (36.4-46.3); Red Blood Count 3.77 M/uL (4.20-5.40); White Blood Count 8.82 K/ul (4.8-10.8)
[2024-10-04 06:46] LABS: BUN Creatinine Ratio 38.2 (10-20); Calcium 9.5 mg/dl (8.6-10.3); Creatinine Clr Calc Pharmacy 21.8 ml/min; Phosphorus 5.2 mg/dl (2.5-4.9); Potassium 3.9 mmol/L (3.5-5.1)
[2024-10-04] MEDS: SODIUM CHLORIDE 0.9% 1,000 ML IV SCH (07:42)
[2024-10-04 14:45] LABS: BUN Creatinine Ratio 39.3 (10-20); Calcium 9.1 mg/dl (8.6-10.3); Creatinine Clr Calc Pharmacy 24.4 ml/min; Potassium 3.9 mmol/L (3.5-5.1)
--- NOTE | 2024-10-04 16:16 | Hospitalist Progress Note ---
Date of Service October 04, 2024 Assessment & Plan (1) Pneumonia: (2) COPD with exacerbation: (3) Acute kidney injury superimposed on CKD: (4) HTN (hypertension): (5) Dyslipidemia: Plan Ms. Bolaños is an 89 y/o female with COPD, CKD3b, HTN, dyslipidemia, GERD, was admitted for acute hypoxic respiratory failure 2/2 copd exacerbation Patient adamant to return home, however, notable desaturation with ambulation; no wheezing appreciated on exam, just upper airway rhochi Patient declines rehab. Would agree to HH services. May require home o2, will plan for 2 step when ready for d/c #Acute hypoxic resp failure, multifactorial #Right basilar pneumonia #COPD with exacerbation subjective improvement with current regimen - Continue steroids with prednisone 40 mg daily 3/5 - Continue ceftriaxone and azithromycin - Scheduled guaifenesin, prn anti-tussives - Wean O2 as able with goal pulse ox 88-90% - Scheduled DuoNeb QID, with up Q2hrs PRN - Will need 2 step prior to discharge possibly 1-2 days - Pending PT, OT recommending rehab #Elevated troponin - suspect demand ischemia due to pneumonia - downtrending, low suspicion for acs #DIPIKA on CKD - baseline creatinine around 1.2, uptrending; relatively hypotensive on admission s/p IVF, down to 1.4 continue to trend BMP #Relative hypotension #Hypertension - will continue to hold home antihypertensives #Dyslipidemia - Chronic, stable - continue statin Code status: full code DVT prophylaxis: subQ heparin Admission and Anticipated Discharge Date Admission Date: October 02, 2024 Subjective continued improvement, however still with notable JON noted today patient weak, however declines rehab. Discussed with son, patient spends about 12 hours or more alone, however she does live with the son--but she doesnt always have immediate support--patient is typically very independent and active otherwise Physical Exam Constitutional: more alert and less lethargic than day prior Respiratory: few rhonchi, dyspnea noted after ambulation, on 2L nc Cardiovascular: RRR, no murmur, no edema Gastrointestinal (Abdomen): normal bowel sounds, soft, nontender, no hepatosplenomegaly Results & Data Results & Data Vital Signs (Past 12 Hours) Vital Signs Temp Pulse Pulse Resp BP Pulse Ox Pulse Ox 10/04/24 15:39 36.0 C L 79 20 124/57 L 95 10/04/24 15:10 78 18 95 10/04/24 15:05 94 10/04/24 13:02 73 10/04/24 11:38 36.4 C L 79 18 103/59 L 92 10/04/24 11:07 72 18 94 10/04/24 09:23 10/04/24 07:49 36.8 C 64 18 103/56 L 98 10/04/24 07:36 88 L 10/04/24 07:19 86 18 98 10/04/24 07:00 55 L O2 Del Method O2 Flow Rate O2 Flow Rate FiO2 10/04/24 15:39 Nasal Cannula 2 10/04/24 15:10 Nasal Cannula 2 10/04/24 15:05 2 10/04/24 13:02 10/04/24 11:38 Nasal Cannula 2 10/04/24 11:07 Nasal Cannula 2 10/04/24 09:23 Nasal Cannula 1 10/04/24 07:49 Nasal Cannula 2 10/04/24 07:36 Room Air 10/04/24 07:19 Nasal Cannula 2 10/04/24 07:00 Laboratory Results Short CBC 10/04/24 Range/Units 05:54 WBC 8.82 (4.8-10.8) K/ul Hgb 11.5 L (12.0-16.0) g/dl Hct 35.0 L (37.0-47.0) % Plt Count 146 (130-400) K/uL BMP 10/04/24 10/04/24 05:54 14:11 Sodium 143 142 Potassium 3.9 3.9 Chloride 110 H 110 H Carbon Dioxide 25 24 BUN 60 H D 55 H Creatinine 1.57 H 1.40 H Glucose 130 H 152 H Calcium 9.5 9.1 Medications Administered Home Medications Medication Instructions Recorded Confirmed Last Taken albuterol sulfate 90 mcg/actuation 2 inh inhalation Q4H PRN Shortness 10/02/24 10/02/24 10/01/24 aerosol inhaler Of Breath Or Wheezing amlodipine 5 mg tablet 5 mg PO DAILY 10/02/24 10/02/24 09/30/24 aspirin 81 mg tablet 81 mg PO DAILY 10/02/24 10/02/24 09/30/24 fluticasone 500 mcg-salmeterol 50 1 inh inhalation BID 05/04/1810/02/24 10/02/24 mcg/dose blistr powdr for inhalation losartan 25 mg tablet 50 mg PO DAILY 10/02/24 10/02/24 09/30/24 rosuvastatin 10 mg tablet 10 mg PO DAILY 10/02/24 10/02/24 09/30/24 sertraline 50 mg tablet 50 mg PO DAILY 10/02/24 10/02/24 09/30/24 Active Medications Generic Name Dose Route Start Last Admin Trade Name Gavin PRN Reason Stop Dose Admin Albuterol 3 ml 10/02/24 19:00 10/04/24 15:10 Albut/Ipratrop 3mg/0.5mg Neb 3 Ml Vial NEB 11/01/24 18:59 3 ml QIDR RUDY Administration Protocol Aspirin 81 mg 10/03/24 09:00 10/04/24 07:39 Aspirin 81 Mg Ectab PO 11/02/24 08:59 81 mg DAILY RUDY Administration Azithromycin 500 mg 10/03/24 09:00 10/04/24 07:38 Azithromycin 250 Mg Tab PO 10/08/24 08:59 500 mg QAM RUDY Administration Fluticasone/Vilanterol 1 puffs 10/03/24 09:00 10/04/24 07:39 Fluticasone/Vilanterol 200/25mcg 14 Puffs/Inhaler INH 11/02/24 08:59 1 puffs DAILY RUDY Administration Guaifenesin 600 mg 10/02/24 21:00 10/04/24 07:38 Guaifenesin 600 Mg Tabcr PO 11/01/24 20:59 600 mg Q12 RUDY Administration Heparin Sodium (Porcine) 5,000 units 10/02/24 21:00 10/04/24 07:44 Heparin Sod 5,000 Unit/0.5 Ml Vial SQ 11/01/24 20:59 5,000 units Q12 RUDY Administration Ceftriaxone Sodium 2,000 mg in 50 mls @ 100 mls/hr 10/03/24 17:00 10/03/24 18:19 Rocephin IV 10/06/24 17:29 Infused Q24H RUDY Infusion Prednisone 40 mg 10/03/24 09:00 10/04/24 07:39 Prednisone 20 Mg Tab PO 10/07/24 08:59 40 mg DAILY RUDY Administration Rosuvastatin Calcium 10 mg 10/03/24 09:00 10/04/24 07:39 Rosuvastatin Calcium 10 Mg Tab PO 11/02/24 08:59 10 mg DAILY RUDY Administration Sertraline HCl 50 mg 10/03/24 09:00 10/04/24 07:38 Sertraline Hcl 50 Mg Tablet PO 11/02/24 08:59 50 mg DAILY RUDY Administration (1) Pneumonia Pneumonia type: due to unspecified organism Laterality: right Lung location: lower lobe of lung Qualified Code(s): J18.9 - Pneumonia, unspecified organism (4) HTN (hypertension) Hypertension type: primary hypertension Qualified Code(s): I10 - Essential (primary) hypertension
--- NOTE | 2024-10-04 17:43 | Electrocardiogram Report ---
Test Reason : Blood Pressure : */* mmHG Vent. Rate : 71 BPM Atrial Rate : 71 BPM P-R Int : 138 ms QRS Dur : 92 ms QT Int : 402 ms P-R-T Axes : 78 46 54 degrees QTcB Int : 436 ms Normal sinus rhythm Normal ECG When compared with ECG of 03-Oct-2024 05:36, No significant change was found Confirmed by Meng Byers ([id number]) on 10/04/2024 5:43:19 PM Referred By: REFERRED SELF Confirmed By: Meng Byers
[2024-10-05 10:18] LABS: Basophils # (auto) 0.01 K/uL (0.00-0.20); Basophils % (auto) 0.2 %; Hematocrit (blood only) 33.2 % (37.0-47.0); Hemoglobin 10.7 g/dl (12.0-16.0); Immature Granulocytes # (auto) 0.04 K/uL (0.01-0.20); Immature Granulocytes % (auto) 0.6 %; Lymphocytes # (auto) 1.42 K/uL (1.20-3.40); Lymphocytes % (auto) 22.5 %; Mean Corpuscular Hemoglobin 30.4 pg (25.0-34.0); Mean Corpuscular Hgb Conc 32.2 g/dL (32.0-36.0); Mean Corpuscular Volume 94.3 fL (80.0-100.0); Mean Platelet Volume 11.6 fL (9.4-12.4); Monocytes # (auto) 0.34 K/uL (0.11-0.59); Monocytes % (auto) 5.4 %; Neutrophils % (auto) 71.3 %; Platelet Count 147 K/uL (130-400); RDW Coefficient of Variation 13.4 % (11.5-14.5); RDW Standard Deviation 46.4 fL (36.4-46.3); Red Blood Count 3.52 M/uL (4.20-5.40); White Blood Count 6.31 K/ul (4.8-10.8)
[2024-10-05 10:34] LABS: BUN Creatinine Ratio 39.5 (10-20); Calcium 9.1 mg/dl (8.6-10.3); Creatinine Clr Calc Pharmacy 28.8 ml/min; Magnesium 1.9 mg/dl (1.7-2.4); Phosphorus 2.9 mg/dl (2.5-4.9); Potassium 3.6 mmol/L (3.5-5.1)
--- NOTE | 2024-10-05 12:50 | Discharge Summary ---
Discharge Summary Date of Service October 05, 2024 Principal Dx & Hospital Course #1 = Principal Diagnosis (1) Pneumonia: (2) COPD with exacerbation: (3) Acute kidney injury superimposed on CKD: Plan Ms. Bolaños is an 89 y/o female with COPD, CKD3b, HTN, dyslipidemia, GERD who was admitted with acute hypoxic respiratory failure secondary to a copd exacerbation. Acute hypoxic respiratory failure, multifactorial Right basilar pneumonia COPD with exacerbation subjective improvement with current regimen treated with prednisone 40mg daily to complete a 5 day course, completed course of azithromycin 500mg x 3 doses and rocephin--->po cefdinir for 7 days of treatment Scheduled guaifenesin, prn anti-tussives Wean O2 as able with goal pulse ox 88-90%--- pt completed 2 step and did not require oxygen for discharge Scheduled DuoNeb QID, with up Q2hrs PRN OT recommending acute rehab Elevated troponin suspect demand ischemia due to pneumonia downtrending, low suspicion for acs DIPIKA on CKD baseline creatinine around 1.2, peaked at 1.68; relatively hypotensive on admission s/p IVF, down to 1.19 on discharge PCP followup Relative hypotension Hypertension - home amlodipine and losartan were on hold, resumed on discharge Dyslipidemia Chronic, stable - continue statin Notes For Next Care Provider As above Medication Changes From Visit prednisone 40mg daily x 2 days cefdinir 300mg BID x 5 days Probiotic tessalon prn Admission HPI Per Admitting Provider This is an 89 y/o female with COPD, CKD3b, HTN, dyslipidemia, GERD, and other history as noted below who presents to the ED with worsening COPD symptoms and cough for past 1-2 days. Pt reports that she started with cold symptoms a few days ago - sinus congestion, runny nose. However, has been worsening over the last two days with a cough that is intermittently productive of thick white mucus. Associated wheezing and dyspnea. She has a history of underlying COPD which has been worse since being sick. She cannot even recall if she has been using her inhalers. Subjective fever yesterday but thinks it broke overnight, had sweats. Denies LORA, chest pain, ST, abdominal pain. Associated diarrhea today. No issues with urination other than incontinence with coughing. Does not require oxygen at home. Former smoker - quit three years ago. Son was sick with similar symptoms first but he is now better. Admission Exam Per Admitting Provider On exam, General: In distress getting nebs Eyes: PERRL, conjunctivae normal, not pale, anicteric sclerae, EOM intact bilaterally ENMT: External ear and nose normal, oropharynx normal Respiratory: In resp distress, +wheeze, +cough Cardiovascular: RRR S1 S2 Gastrointestinal (Abdomen): Abdomen is not distended, soft, non-tender to palpation, no guarding, no palpable hepatosplenomegaly, normal bowel sounds Musculoskeletal: No pedal edema Neurologic: Alert and oriented x 3, No focal weakness, sensation grossly intact Psychiatric: Euthymic affect Discharge Exam General: Alert, oriented. No acute distress HEENT: NC/AT CV: RRR Resp: Breath sounds coarse bilaterally, no increased effort of breathing Abdomen: Soft, nontender Extremities: No edema in lower extremities bilaterally. Updated Medication List Medication Instructions Recorded Confirmed Type albuterol sulfate 90 mcg/actuation 2 inh inhalation Q4H PRN Shortness 10/02/24 10/02/24 History aerosol inhaler Of Breath Or Wheezing amlodipine 5 mg tablet 5 mg PO DAILY 10/02/24 10/02/24 History aspirin 81 mg tablet 81 mg PO DAILY 10/02/24 10/02/24 History fluticasone 500 mcg-salmeterol 50 1 inh inhalation BID 10/02/24 10/02/24 History mcg/dose blistr powdr for inhalation losartan 25 mg tablet 50 mg PO DAILY 10/02/24 10/02/24 History rosuvastatin 10 mg tablet 10 mg PO DAILY 10/02/24 10/02/24 History sertraline 50 mg tablet 50 mg PO DAILY 10/02/24 10/02/24 History Saccharomyces boulardii 250 mg 250 mg PO DAILY #30 caps 10/05/24 Rx capsule (Florastor) benzonatate 100 mg capsule 100 mg PO TID PRN cough #30 caps 10/05/24 Rx cefdinir 300 mg capsule 300 mg PO BID #10 caps 10/05/24 Rx prednisone 20 mg tablet 40 mg (2 x 20 mg) PO DAILY #4 tabs 10/05/24 Rx Hospital Stay Data Consultations 10/02/24 16:49 ED Decision to Admit Stat Diagnostic Imagining Performed Chest X-Ray 10/02/24 16:07 Chest radiograph, one view History: Cough Comparison: 03/07/2015 Findings: Single AP view of the chest performed. There is new small patchy right basilar opacity. No pneumothorax. The cardiomediastinal silhouette is within normal limits. Normal pulmonary vascularity. No visualized bony or soft tissue abnormality. Impression: Right basilar small area of patchy opacity concerning for infection Electronically signed by Meng Roach 10-02-2024 4:42 PM Discharge Instructions Given to Patient (Per Discharging Provider) Milka, You were seen and treated for a COPD exacerbation. Your symptoms improved and you are being discharged home. Please continue with the antibiotic cefdinir prescribed for an additional 5 days with the probiotic. You completed treatment with azithromycin in the hospital. Please continue with the prednisone for an additional 2 days starting tomorrow. Continue with the tessalon pearles as needed to help with your cough. Please keep close follow up with your primary care provider after discharge. Please do not hesitate to come back to the emergency room if your symptoms worsen or return. It was a pleasure taking care of you while you were here. Total Time Total Time Spent Total Time Spent (In Minutes): 60
--- NOTE | 2024-10-05 14:08 | Electrocardiogram Report ---
Test Reason : Blood Pressure : */* mmHG Vent. Rate : 87 BPM Atrial Rate : 87 BPM P-R Int : 144 ms QRS Dur : 84 ms QT Int : 358 ms P-R-T Axes : 76 46 60 degrees QTcB Int : 430 ms Normal sinus rhythm Nonspecific ST abnormality Abnormal ECG When compared with ECG of 07-Mar-2015 12:51, Vent. rate has increased by 33 bpm Confirmed by Meng Byers ([id number]) on 10/05/2024 2:08:10 PM Referred By: REFERRED SELF Confirmed By: Meng Byers
--- NOTE | 2024-10-05 14:14 | Electrocardiogram Report ---
Test Reason : Blood Pressure : */* mmHG Vent. Rate : 72 BPM Atrial Rate : 72 BPM P-R Int : 132 ms QRS Dur : 92 ms QT Int : 396 ms P-R-T Axes : 76 50 48 degrees QTcB Int : 433 ms Normal sinus rhythm Nonspecific ST abnormality Abnormal ECG When compared with ECG of 03-Oct-2024 09:42, Nonspecific T wave abnormality no longer evident in Anterior leads Confirmed by Meng Byers ([id number]) on 10/05/2024 2:13:30 PM Referred By: REFERRED SELF Confirmed By: Meng Byers
== END 2024-10-05 14:43 | disposition home health service (06) | DRG 193 ==
LOC: ED 14:51 → SUATTDRO 17:29 → 2W 17:29